=== PATIENT | female | born 1985 | race Caucasian/White ===

== ENCOUNTER 2020-06-07 | Outpatient (REF) | payer OTHER, SELFPAY ==
--- NOTE | 2020-06-07 10:13 | EMG_ITS ---
Right median and ulnar motor and sensory studies were performed. Right radial sensory study was performed and paraspinal muscles were tested. IMPRESSION: Mild right median neuropathy across carpal tunnel. MD JUAN Sage/SINAN / [id number]
== END 2020-06-07 00:01 ==
LOC: HO.NEURO
PROVIDERS: Visit Provider Internal Medicine
DX: M25.531 Pain in right wrist (principal)
CPT/HCPCS: 95860; 95885; 95909

== ENCOUNTER 2020-06-14 09:59 | Outpatient (REF) | payer OTHER, SELFPAY ==
--- NOTE | 2020-06-14 10:03 | US_ITS ---
EXAMINATION: US PELVIS COMPLETE CLINICAL INFORMATION: Lower abdominal pain/pelvic pain. COMPARISON: None TECHNIQUE: Transabdominal and transvaginal imaging of the pelvis is performed FINDINGS: The uterus is anteverted, anteflexed measuring 9.9 cm in length, 4.9 cm in AP and 6.8 cm in transverse dimension. There are at least 2 fibroids visualized in the anterior upper body of the uterus. They measure 1.7 x 1.8 x 1.7 cm and 1.2 x 1.3 x 1.0 cm. The uterus is homogeneous in echotexture. The endometrial thickness measures 1.20 cm. Small nabothian anechoic cysts in cervix. The right ovary measures 2.91 x 1.63 x 1.92 cm and volume 4.771 mL. It appears unremarkable. The left ovary measures 2.66 x 1.46 x 2.55 cm and volume 5.19 mL. It appears unremarkable. There is no free fluid in the cul-de-sac. US/US pelvic complete IMPRESSION: 1. Two small uterine fibroids. 2. Small nabothian cysts in the cervix. 3. The ovaries are unremarkable.
--- NOTE | 2020-06-14 10:04 | US_ITS ---
EXAMINATION: US PELVIS COMPLETE CLINICAL INFORMATION: Lower abdominal pain/pelvic pain. COMPARISON: None TECHNIQUE: Transabdominal and transvaginal imaging of the pelvis is performed FINDINGS: The uterus is anteverted, anteflexed measuring 9.9 cm in length, 4.9 cm in AP and 6.8 cm in transverse dimension. There are at least 2 fibroids visualized in the anterior upper body of the uterus. They measure 1.7 x 1.8 x 1.7 cm and 1.2 x 1.3 x 1.0 cm. The uterus is homogeneous in echotexture. The endometrial thickness measures 1.20 cm. Small nabothian anechoic cysts in cervix. The right ovary measures 2.91 x 1.63 x 1.92 cm and volume 4.771 mL. It appears unremarkable. The left ovary measures 2.66 x 1.46 x 2.55 cm and volume 5.19 mL. It appears unremarkable. There is no free fluid in the cul-de-sac. US/US transvaginal IMPRESSION: 1. Two small uterine fibroids. 2. Small nabothian cysts in the cervix. 3. The ovaries are unremarkable.
== END 2020-06-14 10:00 | disposition home or self-care (01) ==
LOC: HO.HMGCX 09:59
PROVIDERS: Visit Provider Advanced Practice Midwife
DX: R10.2 Pelvic and perineal pain (principal)
CPT/HCPCS: 76830; 76856

== ENCOUNTER 2020-07-11 10:13 | Outpatient (REF) | payer OTHER, SELFPAY | END 2020-07-11 10:14 | disposition home or self-care (01) | LOC: HO.LAB 10:13 | PROVIDERS: Visit Provider Internal Medicine | DX: Z20.828 Contact with and (suspected) exposure to other viral communicable diseases (principal) | CPT/HCPCS: 36415; C9803; U0003 ==

== ENCOUNTER 2020-07-23 10:30 | Outpatient (REF) | payer OTHER, SELFPAY ==
--- NOTE | 2020-07-23 | XR_ITS ---
EXAMINATION: XR CHEST CLINICAL INFORMATION: Cough. COMPARISON: None TECHNIQUE: 2 views of the chest were obtained. FINDINGS: No significant abnormality is noted involving the heart, lungs, mediastinum, bony thorax or soft tissues. XR/XR chest 2V IMPRESSION: Unremarkable chest examination.
== END 2020-07-23 10:31 | disposition home or self-care (01) ==
LOC: HO.XRAY 10:30
PROVIDERS: PCP Internal Medicine; Visit Provider Internal Medicine
DX: R05 Cough (principal)
CPT/HCPCS: 71046

== ENCOUNTER 2021-04-23 13:25 | Outpatient (REF) | payer OTHER, SELFPAY ==
--- NOTE | ~2021-04-23 | XR_ITS ---
EXAMINATION: XR CERVICAL SPINE CLINICAL INFORMATION: Pain COMPARISON: None TECHNIQUE: 6 views of the cervical spine, inclusive of bilateral oblique views, were obtained. FINDINGS: There is mild curvature of the lower cervical and upper thoracic spine to the left. Bone alignment is otherwise normal. No fracture or dislocation is seen. Disc spaces are normal. Right-sided neural foramen are patent. Evaluation of left-sided neural foramen is limited due to patient positioning. There is question of left-sided neuroforaminal narrowing at C7-T1 from bony osteophyte. Prevertebral soft tissues are normal. XR/XR cervical spine 5V IMPRESSION: Mild curvature of the lower cervical and upper thoracic spine to the left. Question mild left C7-T1 neuroforaminal narrowing from bony osteophyte.
== END 2021-04-23 13:26 | disposition home or self-care (01) ==
LOC: HO.HMGCX 13:25
PROVIDERS: PCP Internal Medicine; Visit Provider Internal Medicine
DX: M54.2 Cervicalgia (principal)
CPT/HCPCS: 72050

== ENCOUNTER 2021-07-09 07:00 | Outpatient (RCR) | payer OTHER, SELFPAY ==
--- NOTE | 2021-06-11 14:53 | MHC.PT.EP ---
[facility] [place] [facility] [place] [facility] [place] [facility] [address] [phone] F: [phone] F: [phone] F: [phone] F: [phone] Physical Therapy Plan of Care Date of Evaluation: Date of Surgery: n/a Diagnosis: neck pain, cervicalgia Assessment: Patient is a 35 year old R handed female who presents with s/s consistent with cervicalgia. 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 Her pain is often associated with work. Patient past medical history includes is fairly unremarkable. Current impairments include pain, posture, ROM, strength, activity tolerance and functional mobility. Functional limitations include decreased ability to walk, stand, lift, carry, vacuum, clean, transfer, negotiate stairs, and perform weight bearing activities.. Patient is motivated with good rehab potential. Skilled PT will address impairments and functional limitations in order to achieve goals. Frequency and Duration: The patient will be seen 2x/week for 5 weeks Short Term Goals: I with HEP - 2 weeks Improved postural awareness - 3 weeks Symmetrical AROM rotation - 3 weeks Fdc Goals: Max pain with work day - 5 weeks Able to lift/carry 20# pain free - 5 weeks NPDI 12% or better - 5 weeks Treatment Plan: Modalities to reduce pain, spasms and effusion. Manual therapy to restore motion and function. Therapeutic exercise to improve strength and flexibility. Neuromuscular re-education for posture and balance. Therapeutic activities to return to functional activities of daily living. Electronically signed by: Mario Engle PT Please sign and return to therapist. Thank you for your referral.
== END 2021-10-03 09:44 | disposition home or self-care (01) ==
LOC: HO.PTCHIC 07:00
PROVIDERS: PCP Internal Medicine; Visit Provider Internal Medicine
DX: R41.3 Other amnesia (principal); M54.2 Cervicalgia
CPT/HCPCS: 97110; 97140; 97161

== ENCOUNTER 2022-06-03 13:02 | Outpatient (REF) | payer OTHER, SELFPAY ==
--- NOTE | ~2022-06-03 | US_ITS ---
EXAMINATION: US PELVIS CLINICAL INFORMATION: Extensive and frequent menses, leiomyoma, last menstrual period 05/20/2022. COMPARISON: 06/14/2020 TECHNIQUE: Ultrasound of the pelvis is performed using both transabdominal and transvaginal transducers along with Doppler. Transvaginal imaging is performed due to inadequate visualization transabdominally. FINDINGS: The uterus is heterogeneous and measures 9.3 x 4.5 x 5.3 cm, volume 116 mL. There is a 1.9 x 1.5 x 2.5 cm fibroid, previously 1.7 x 1.8 x 1.7 cm. A 0.5 x 0.5 x 0.6 cm fibroid was not previously identified. Nabothian cysts in the cervix. No significant free fluid. Left ovary is unremarkable and measures 2.2 x 1.8 x 1.7 cm, volume 3.5 mL. Right ovary measures 3.0 x 2.1 x 2.8 cm, volume 8.9 mL. Right ovarian simple cyst measures 1.3 x 1.0 x 1.3 cm. US/US pelvic and transvaginal IMPRESSION: 1. Fibroid uterus. 2. Endometrial thickness is 0.6 cm. Endometrium appears echogenic. 3. Right ovarian 1.3 cm simple cyst is likely physiologic. 4. Unremarkable left ovary.
== END 2022-06-03 13:03 | disposition home or self-care (01) ==
LOC: HO.HMGCX 13:02
PROVIDERS: PCP Internal Medicine; Visit Provider Advanced Practice Midwife
DX: D25.9 Leiomyoma of uterus, unspecified (principal); N92.0 Excessive and frequent menstruation with regular cycle; N94.6 Dysmenorrhea, unspecified
CPT/HCPCS: 76830; 76856

== ENCOUNTER → 2022-11-25 09:11 | Outpatient (BNVA) | payer OTHER, SELFPAY | PROVIDERS: PCP Internal Medicine; Visit Provider Advanced Practice Midwife | DX: D25.9 Leiomyoma of uterus, unspecified (principal) | CPT/HCPCS: 99202 ==

== ENCOUNTER 2022-11-27 09:29 | Outpatient (REF) | payer OTHER, SELFPAY ==
--- NOTE | ~2022-11-27 | XR_ITS ---
Examination: Left foot and left ankle. CLINICAL INDICATION: Foot pain. COMPARISON: None. TECHNIQUE: 3 views left foot and 2 views left ankle. FINDINGS: Left foot: There is no visible fracture, dislocation or subluxation. No bony erosive changes. The soft tissues are normal. Left ankle: There is a small calcaneal heel enthesophyte. The ankle mortise and subtalar joints are normal. No visible acute fracture, dislocation or subluxation seen. XR/XR foot LT min 3V IMPRESSION: 1. Unremarkable left foot exam. 2. Small calcaneal heel enthesophyte. No visible acute fracture, dislocation or subluxation seen.
--- NOTE | ~2022-11-27 | XR_ITS ---
Examination: Left foot and left ankle. CLINICAL INDICATION: Foot pain. COMPARISON: None. TECHNIQUE: 3 views left foot and 2 views left ankle. FINDINGS: Left foot: There is no visible fracture, dislocation or subluxation. No bony erosive changes. The soft tissues are normal. Left ankle: There is a small calcaneal heel enthesophyte. The ankle mortise and subtalar joints are normal. No visible acute fracture, dislocation or subluxation seen. XR/XR ankle LT min 3V IMPRESSION: 1. Unremarkable left foot exam. 2. Small calcaneal heel enthesophyte. No visible acute fracture, dislocation or subluxation seen.
== END 2022-11-27 09:30 | disposition home or self-care (01) ==
LOC: HO.XRAY 09:29
PROVIDERS: PCP Internal Medicine; Visit Provider General Practice
DX: M25.572 Pain in left ankle and joints of left foot (principal)
CPT/HCPCS: 73610; 73630

== ENCOUNTER 2023-06-30 14:35 | Outpatient (REF) | payer OTHER, SELFPAY ==
[2023-06-30 18:25] LABS: Influenza A PCR NEGATIVE (Negative); Influenza B PCR NEGATIVE (Negative); Resp Syncy Virus RNA Qual PCR POSITIVE (Negative); SARS COV2 PCR INHOUSE NEGATIVE (Negative)
== END 2023-06-30 14:36 | disposition home or self-care (01) ==
LOC: HO.CHCLNP 14:35
PROVIDERS: Visit Provider Internal Medicine
DX: Z11.52 Encounter for screening for COVID-19 (principal); J06.9 Acute upper respiratory infection, unspecified
CPT/HCPCS: 0241U; 87070

== ENCOUNTER 2023-07-09 11:30 | Outpatient (REF) | payer OTHER, SELFPAY | END 2023-07-09 11:31 | disposition home or self-care (01) | LOC: HO.US 11:30 | PROVIDERS: PCP Internal Medicine; Visit Provider Advanced Practice Midwife | DX: D21.9 Benign neoplasm of connective and other soft tissue, unspecified (principal) | CPT/HCPCS: 76830; 76856 ==

== ENCOUNTER 2023-07-22 19:39 | Outpatient (REF) | payer OTHER, SELFPAY | END 2023-07-22 19:40 | disposition home or self-care (01) | LOC: HO.HHCLNP 19:39 | PROVIDERS: Visit Provider Emergency Medicine | DX: J10.1 Influenza due to other identified influenza virus with other respiratory manifestations (principal) | CPT/HCPCS: 87070 ==

== ENCOUNTER 2023-12-24 15:48 | Outpatient (REF) | payer SELFPAY ==
--- NOTE | ~2023-12-24 | XR_ITS ---
EXAMINATION: XR CERVICAL SPINE CLINICAL INFORMATION: Radiculopathy. Neck pain. COMPARISON: None available. TECHNIQUE: 5 views of the cervical spine were obtained. FINDINGS: Cervical vertebrae have normal height and alignment. No fracture or bone destruction. No prevertebral soft tissue swelling. Mild cervical disc height narrowing C5-C6 and C6-C7 discs levels. The facet joints are normal. Neural foramina are open bilaterally. XR/XR cervical spine 4V IMPRESSION: 1. No acute abnormality. 2. Mild cervical disc height narrowing at C5-C6 and C6-C7.
--- NOTE | ~2023-12-24 | XR_ITS ---
EXAMINATION: XR THORACOLUMBAR SPINE CLINICAL INFORMATION: Cervical radiculopathy; radiculopathy of cervicothoracic region; neck/midback pain. COMPARISON: None available. TECHNIQUE: 2 views thoracic spine. FINDINGS: There is a minimal scoliosis convex to the left centered at T3-T4. No intrinsic bony abnormality. The disc heights are well maintained. The endplates and posterior elements are normal. No fracture or subluxation. The surrounding prevertebral soft tissues are unremarkable. XR/XR thoracic spine 2V IMPRESSION: Minimal scoliosis convex to the left.
== END 2023-12-24 15:49 | disposition home or self-care (01) ==
LOC: HO.HHCX 15:48
PROVIDERS: Visit Provider Internal Medicine
DX: M54.12 Radiculopathy, cervical region (principal); M54.13 Radiculopathy, cervicothoracic region
CPT/HCPCS: 72050; 72070

== ENCOUNTER 2024-04-30 08:52 | Outpatient (REF) | payer SELFPAY ==
[2024-04-30 10:39] LABS: HCG Quantitative 600 mIU/mL
== END 2024-04-30 08:53 | disposition home or self-care (01) ==
LOC: HO.LAB 08:52
PROVIDERS: PCP Internal Medicine; Visit Provider Internal Medicine
DX: Z32.00 Encounter for pregnancy test, result unknown (principal)
CPT/HCPCS: 36415; 84702

== ENCOUNTER 2024-05-19 13:29 | Emergency (ER) | payer MEDICAID, SELFPAY ==
--- NOTE | ~2024-05-19 | US_ITS ---
EXAMINATION: US OBSTETRICAL ULTRASOUND CLINICAL INFORMATION: Vaginal bleeding and cramping. COMPARISON: Pelvic ultrasound dated 06/03/2022. LMP: 04/01/2024. Gestational age by maternal dates is 6 weeks 6 days. Estimated date of delivery by maternal dates is . TECHNIQUE: Transabdominal and transvaginal imaging was obtained. FINDINGS: There is an intrauterine gestational sac and pole. The pole corresponds to a gestational age of 6 weeks 0 days. Unremarkable yolk sac measuring 0.5 cm. Additional cystic structure which has the appearance of a second yolk sac is partially visualized. No heart rate detected within the pole. Adjacent to the gestational sac there is an irregular area of hypoechoic echogenicity, consistent with subchorionic hemorrhage. Redemonstration of a uterine fibroid measuring up to 2.2 cm. MATERNAL ADNEXA: The right maternal ovary measures 3 x 1.7 x 2.3 cm. The left maternal ovary measures 2.3 x 1.2 x 1.6 cm. Normal Doppler detectable vascular flow within the right and left ovary. There is no significant maternal adnexal mass. No maternal pelvic ascites. US/US OB pelvic and transvaginal IMPRESSION: 1. Intrauterine gestational sac with a pole. No heart rate identified. There appear to be 2 separate possible yolk sacs. 2. Findings consistent with subchorionic hemorrhage. 3. Redemonstration of a uterine fibroid. 4. Unremarkable right and left ovary. Electronically signed by: Jason Sharma MD 05/19/2024 05:51 PM [facility] [place]
[2024-05-19 14:23] VITALS: BP 127/72; PULSE 75; RESP 20; TEMP 37.3; O2SAT 100; BMI 35.2
--- NOTE | 2024-05-19 14:24 | ED.FEMALEGU ---
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 Has mild cramping. No recent trauma. Does not have OBGYN PCP ordered quant 04/30 it was 600. MD elicited complaint: vaginal bleeding Onset (ago): day(s) (today) Location of symptoms: suprapubic Severity: mild Quality of pain: cramping Consistency: intermittent Vaginal discharge: none Vaginal bleeding: bright red and # pads per day (2) Exacerbating factors: none Relieving factors: none Associated symptoms: denies other symptoms Treatment prior to arrival: none Related Data Previous Rx's ?Medication ?Instructions ?Recorded nitrofurantoin 100 mg PO BID 7 days #14 caps 05/20/24 monohydrate/macrocrystals 100 mg capsule (Macrobid) Allergies Allergy/AdvReac Type Severity Reaction Status Date / Time No Known Allergies Allergy Verified 05/19/24 14:26 Review of Systems Review of Systems: Constitutional : No Fever, No Chills ENT/Mouth : No sore throat, No Rhinorrhea Eyes: No Eye Pain, No Redness Cardiovascular : No Chest Pain, No SOB Respiratory : No Cough, No Sputum, No Wheezing Gastrointestinal : no Nausea, No Vomiting, No Diarrhea, positive abdominal pain, Genitourinary : positive irregular bleeding, No Dysuria, No Urinary Frequency, positive pelvic pain Musculoskeletal : No Myalgias Skin : No rash Neuro : No Weakness, No Headache Psych : No Anxiety/Panic, No Depression Heme/Lymph: No bruising, No Lymphadenopathy Endocrine : No Polyuria, No Polydipsia All other systems reviewed and are negative PMFSH Past Medical History Attestation statement: The following information was validated with the patient. Source: old records reviewed Medical History Varicose vein of leg Surgical History Hx of section Social History Social History Alcohol intake: current Alcohol intake frequency: holidays/special occasions only Physical Exam Vital Signs: Vital Signs: Last Vital Signs Temp 97.9 F 05/19/24 22:07 Pulse 65 05/19/24 22:07 Resp 18 05/19/24 22:07 BP 103/68 05/19/24 22:07 Pulse Ox 98 05/19/24 22:07 O2 Del Method Room Air 05/19/24 22:07 BMI result Body Mass Index 35.2 Appearance: Alert. Oriented X3. No acute distress. Eyes: Pupils equal, round and reactive to light. ENT: Pharynx normal. Neck: Normal inspection. Neck supple. CVS: Normal heart rate and rhythm. Pulses normal. Respiratory: No respiratory distress. Breath sounds normal. Abdomen: Soft and nontender. : 1 scopette of blood, os closed Skin: Skin warm and dry. Normal skin color. Normal skin turgor. Extremities: No lower extremity edema. No calf ttp Neuro: Oriented X 3. No motor deficit. No sensory deficit. Course Course Course Narrative: This is a Rapid Medical Exam performed in triage by Marce Benedict PA-C. Full HPI, ROS and PE to be performed by primary ED provider. 38yo F @ about 6wks gestation presenting to the ED c/o vaginal bleeding /spotting x this morning w/o clots. +abdominal cramping. Has not obtained any OB care yet. LMP 04/01/24 PE: nontoxic appearing, ambulating w/steady gait Plan: labs, UA, US Reevaluation(s) Reevaluation #1: left message about UTI macrobid in pharmacy 1232am Medications Administered Discontinued Medications Generic Name Dose Route Start Last Admin Trade Name Freq PRN Reason Stop Dose Admin Acetaminophen 650 mg 05/19/24 21:38 05/19/24 21:59 Acetaminophen 325 Mg Tablet PO 05/19/24 21:39 650 mg ONCE ONE Administration Medical Decision Making Medical Decision Making [facility] Narrative: 38 yo female with PMH of fibroids - here with vaginal bleeding at this time will obtain quant, RH status, H/H and US - concern for threatened ab. Suspect she will need close outpatient follow up Differential Diagnosis Differential Diagnoses: The differential diagnosis associated with the presentation includes threatened ab, subchorionic hemorrhage Admission/Observation Consideration of admission/observation: Escalation of care including admission/observation considered H/H stable O pos send home with precautions Consult Healthcare Provider Management of the patient was discussed with: Occupational Therapist Assistants (Dr. Rose aware follow up in 48 hours repeat quant) Lab Data [facility] Lab Attestation statement: I reviewed the patient's lab results. 05/19/24 15:03 05/19/24 15:03 Labs: Lab Results 05/19/24 05/19/24 05/19/24 Range/Units 15:02 15:03 15:04 WBC 7.2 (4.8-10.8) X10*3/uL RBC 4.56 (4.20-5.50) X10*6/uL Hgb 13.9 (12.0-16.0) g/dl Hct 41.5 (37.0-47.0) % MCV 91.0 (80.0-98.0) fL MCH 30.5 (27.0-33.0) pg MCHC 33.5 (31.0-35.0) g/dl RDW 12.8 (11.0-16.0) % Plt Count 235 (160-400) X10*3/uL MPV 9.9 (9.4-12.3) fL Immature Gran % (Auto) 0.3 (0.0-0.4) % Neut % (Auto) 59.6 (45-73) % Lymph % (Auto) 28.6 (20-40) % [place] % (Auto) 9.2 (2-11) % Eos % (Auto) 1.9 (0-4) % Baso % (Auto) 0.4 (0-2) % Lymph # (Auto) 2.1 (1.2-4.9) X10*3/uL [place] # (Auto) 0.7 (0.1-1.2) X10*3/uL Eos # (Auto) 0.1 (0.0-0.4) X10*3/uL Baso # (Auto) 0.0 (0.0-0.2) X10*3/uL Abs Immat Gran (auto) 0.02 (0.00-0.03) X10*3/uL Absolute Neuts (auto) 4.3 (2.0-8.3) x10*3/uL Absolute Nucleated RBC 0.000 (0.0-0.012) X10*3/uL Nucleated RBC % (auto) 0.0 (0.0-0.2) /100WBC Sodium 135 (135-145) mmol/L Potassium 4.0 (3.3-5.1) mmol/L Chloride 107 (96-108) mmol/L Carbon Dioxide 24 (22-29) mmol/L Anion Gap 8 L (12-20) BUN 14 (9-16) mg/dL Creatinine 0.74 (0.5-1.4) mg/dL Estim Creat Clear Calc 111.7 Estimated GFR > 60 Random Glucose 102 (60-115) mg/dL Calcium 8.7 (8.4-10.2) mg/dL Magnesium 2.1 (1.6-2.6) mg/dL Total Bilirubin 0.2 (0.0-1.0) mg/dL Direct Bilirubin < 0.2 (0.0-0.5) mg/dL AST 32 H (5-31) U/L ALT 33 H (0-31) U/L Alkaline Phosphatase 88 (39-117) U/L Total Protein 7.1 (6.5-8.0) g/dL Albumin 3.9 (3.5-5.0) g/dL Lipase 23 (8-78) U/L Beta HCG, Quant 1843 mIU/mL Urine Color pink Urine Appearance Hazy Urine pH 5.0 (5.0-9.0) Ur Specific [place] 1.015 (1.005-1.025) Urine Protein 100 (2+) H (Neg-Trace) mg/dL Urine Glucose (UA) Negative (Negative) mg/dL Urine Ketones Trace (Negative) mg/dL Urine Blood Large (3+) H (Negative) Urine Nitrite Positive H (Negative) Ur Leukocyte Esterase Trace H (Negative) Urine RBC >20 H (0-2) /HPF Urine WBC 11-20 H (0-5) /HPF Ur Squamous Epith Cells 11-20 (0-2) /HPF Urine Bacteria 2+ (None Seen) Hyaline Casts 0-2 (0-2) /LPF Blood Type O Positive Independent Interpretation I performed an independent interpretation of an: Ultrasound (not consistent with dates concern for threatened ab) Radiology Impression Discussion of test interpretation with radiology: I have reviewed the radiologist's reading. Independent Historian Clinical information obtained from an independent historian. History obtained from or confirmed by: Spouse External Record Review External record reviewed: Prior outpatient labs Discharge Plan Discharge Clinical Impression: Threatened , Acute UTI Patient Disposition: Home, Self-Care Instructions: Threatened Miscarriage (ED) Additional Instructions: return for severe pain, fainting, passing clots larger than a golf ball, dizziness return thursday for repeat blood work rest and stay hydrated take tylenol for pain Prescriptions: New nitrofurantoin monohyd/m-cryst [Macrobid] 100 mg capsule 100 mg PO BID 7 Days Qty: 14 0RF Rx Instructions: must administer with a meal/food Stand Alone Forms: Work/School Release Interventions: ED Discharge Assessment Last Done: 05/19/24 22:07 Discharge Date/Time: 05/19/24 22:07 Print Language: Malagasy
[2024-05-19 15:12] LABS: MANUAL DIFF FLAG NO
[2024-05-19 15:15] LABS: Basophils Percent Auto 0.4 % (0-2); Eosinophils Absolute Auto 0.1 X10*3/uL (0.0-0.4); Eosinophils Percent Auto 1.9 % (0-4); Hematocrit 41.5 % (37.0-47.0); Hemoglobin 13.9 g/dl (12.0-16.0); Imm Gran Abs Auto 0.02 X10*3/uL (0.00-0.03); Imm Gran Pct Auto 0.3 % (0.0-0.4); Lymphocytes Absolute Auto 2.1 X10*3/uL (1.2-4.9); Lymphocytes Percent Auto 28.6 % (20-40); Mean Corpuscular HGB Conc 33.5 g/dl (31.0-35.0); Mean Corpuscular Hemoglobin 30.5 pg (27.0-33.0); Mean Platelet Volume 9.9 fL (9.4-12.3); Monocytes Absolute Auto 0.7 X10*3/uL (0.1-1.2); Monocytes Percent Auto 9.2 % (2-11); Neutrophils Absolute Auto 4.3 x10*3/uL (2.0-8.3); Neutrophils Percent Auto 59.6 % (45-73); Platelet Count 235 X10*3/uL (160-400); Red Blood Count 4.56 X10*6/uL (4.20-5.50); Red Cell Distribution Width 12.8 % (11.0-16.0); White Blood Count 7.2 X10*3/uL (4.8-10.8)
[2024-05-19 15:15] LABS: Appearance Urine Hazy; Glucose Urine UA Negative (Negative); Leukocyte Esterase Urine Trace (Negative); Nitrite Urine Positive (Negative); Specific Gravity - Urine 1.015 (1.005-1.025); UMIC TRIGGER UACC YES; Urine Blood Large (3+) (Negative); Urine Ketones Trace mg/dL (Negative); Urine Protein 100 (2+) mg/dL (Neg-Trace)
[2024-05-19 15:23] LABS: Bacteria Urine 2+ (None Seen); Hyaline Casts Urine 0-2 /LPF (0-2); RBC Urine >20 /HPF (0-2); UACC Culture Trigger YES
[2024-05-19 15:37] LABS: Alanine Aminotransferase 33 U/L (0-31); Albumin Level 3.9 g/dL (3.5-5.0); Alkaline Phosphatase 88 U/L (39-117); Anion Gap 8 (12-20); Aspartate Amino Transferase 32 U/L (5-31); Bilirubin Direct < 0.2 mg/dL (0.0-0.5); Bilirubin Total 0.2 mg/dL (0.0-1.0); Blood Urea Nitrogen 14 mg/dL (9-16); Calcium 8.7 mg/dL (8.4-10.2); Carbon Dioxide 24 mmol/L (22-29); Chloride 107 mmol/L (96-108); Creatinine Clr Calc Pharmacy 111.7; Estimated Glomerular Filt Rate > 60; Glucose Random 102 mg/dL (60-115); HCG Quantitative 1843 mIU/mL; Lipase 23 U/L (8-78); Magnesium 2.1 mg/dL (1.6-2.6); Sodium 135 mmol/L (135-145); Total Protein 7.1 g/dL (6.5-8.0)
[2024-05-19 19:58] VITALS: BP 110/63; PULSE 62; RESP 16; TEMP 36.5; O2SAT 100
--- NOTE | 2024-05-19 21:47 | PM.GYNCN ---
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 Has mild cramping. quant hCG on 04/30 was 600. Today in the emergency room hCG was 1843 Blood type O positive cc:: CC: OB [facility] Past Medical History Medical History Varicose vein of leg Surgical History Surgical History Hx of section Social History Social History Alcohol intake: current Alcohol intake frequency: holidays/special occasions only Smoked in Last 30 Days: No Use of substances other than those prescribed or required for medical reasons: No Advance Directives: No Advance Directives Information Provided: Yes Patient : Yes Meds Allergies Allergy/AdvReac Type Severity Reaction Status Date / Time No Known Allergies Allergy Verified 05/19/24 14:26 Home Medications ?Medication ?Instructions ?Recorded ?Confirmed ?Last Taken ?Type No Known Home Meds 11/25/22 11/25/22 Unknown History [employer] OPER[employer] Physical Exam Vitals Vital signs: Temp Pulse Resp BP Pulse Ox O2 Del Method 97.7 F 62 16 110/63 100 Room Air 05/19/24 19:58 05/19/24 19:58 05/19/24 19:58 05/19/24 19:58 05/19/24 19:58 05/19/24 19:58 BMI result Body Mass Index 35.2 Additional Comments: Reported by Dr. Reddy as the following: Abdomen: Soft and nontender. : 1 scopette of blood, os closed [employer] OPERATOR - Results Labs 05/19/24 15:03 05/19/24 15:03 Labs: Short CBC 05/19/24 Range/Units 15:03 WBC 7.2 (4.8-10.8) X10*3/uL Hgb 13.9 (12.0-16.0) g/dl Hct 41.5 (37.0-47.0) % Plt Count 235 (160-400) X10*3/uL BMP 05/19/24 15:03 Sodium 135 Potassium 4.0 Chloride 107 Carbon Dioxide 24 BUN 14 Creatinine 0.74 Calcium 8.7 Liver Function 05/19/24 Range/Units 15:03 Total Bilirubin 0.2 (0.0-1.0) mg/dL Direct Bilirubin < 0.2 (0.0-0.5) mg/dL AST 32 H (5-31) U/L ALT 33 H (0-31) U/L Alkaline Phosphatase 88 (39-117) U/L Albumin 3.9 (3.5-5.0) g/dL Urine 05/19/24 Range/Units 15:04 Urine Color pink Urine Appearance Hazy Urine pH 5.0 (5.0-9.0) Ur Specific [place] 1.015 (1.005-1.025) Urine Protein 100 (2+) H (Neg-Trace) mg/dL Urine Glucose (UA) Negative (Negative) mg/dL Imaging US - abdomen: Radiologist's impression: ITS Impressions Pelvic/Transvag US 05/19/24 16:17 IMPRESSION: 1. Intrauterine gestational sac with a pole. No heart rate identified. There appear to be 2 separate possible yolk sacs. 2. Findings consistent with subchorionic hemorrhage. 3. Redemonstration of a uterine fibroid. 4. Unremarkable right and left ovary. Electronically signed by: Jason Sharma MD 05/19/2024 05:51 PM [facility] [place] Assessment and Plan (1) Threatened : Status: Acute Recommended the following to Dr. Reddy: SAB/ectopic warnings to be given the patient she is to come back to emergency room in case of pelvic pain and/or cramping or vaginal, 2 follow-up in the emergency room 48 hours will repeat hCG and ultrasound. vitamin tablet p.o. q.d. I spent a total of 20 minutes reviewing the chart, communicating to the emergency room provider and documenting in the medical record
[2024-05-19 21:57] VITALS: BP 103/68; PULSE 65; RESP 18; TEMP 36.6; O2SAT 98
[2024-05-19] MEDS: Acetaminophen 325 MG TABLET 650 MG PO (21:59)
[2024-05-19 22:07] VITALS: BP 103/68; PULSE 65; RESP 18; TEMP 36.6; O2SAT 98
== END 2024-05-19 22:07 | disposition home or self-care (01) ==
PROVIDERS: Physician Assistant; Emergency Provider Emergency Medicine; PCP Internal Medicine
DX: O20.0 Threatened abortion (principal); N93.8 Other specified abnormal uterine and vaginal bleeding; R25.2 Cramp and spasm; R10.2 Pelvic and perineal pain; Z79.899 Other long term (current) drug therapy
CPT/HCPCS: 36415; 76801; 76817; 80048; 80076; 81001; 83690; 83735; 84702; 85025; 86900; 86901; 87086; 99284

== ENCOUNTER → 2024-05-19 19:47 | Outpatient (BNV) | payer MEDICAID, SELFPAY | PROVIDERS: Emergency Provider Emergency Medicine; PCP Internal Medicine; Visit Provider Obstetrics & Gynecology | DX: O20.0 Threatened abortion (principal) | CPT/HCPCS: 99283 ==

== ENCOUNTER 2024-05-21 09:19 | Emergency (ER) | payer MEDICAID, SELFPAY ==
--- NOTE | ~2024-05-21 | US_ITS ---
EXAMINATION: US OBSTETRICAL ULTRASOUND CLINICAL INFORMATION: Bleeding. Lowering hCG. COMPARISON: Pelvic ultrasound dated 05/19/2024. LMP: 04/01/2024. Gestational age by maternal dates is 7 weeks 1 day. Estimated date of delivery by maternal dates is 01/06/2025. TECHNIQUE: Transabdominal images were obtained. FINDINGS: The previously seen intrauterine gestational sac is no longer identified. Heterogeneous and thickened endometrium measuring up to 2.5 cm. No associated Doppler detectable vascular flow. No clear retained products of conception. Redemonstration of a fundal fibroid measuring up to 2.9 cm. Sonographically unremarkable right ovary measuring 3.0 x 1.8 x 2.2 cm with normal Doppler detectable vascular flow. Sonographically unremarkable left ovary measuring 2.0 x 1.2 x 1.7 cm with Doppler detectable vascular flow. No pelvic free fluid. US/US OB <= 14 weeks fetus IMPRESSION: 1. Previously seen intrauterine gestational sac no longer identified. Mildly heterogeneous and thickened endometrium without Doppler detectable vascular flow. No definite retained products of conception. 2. Sonographically unremarkable right and left ovary. Electronically signed by: Jason Sharma MD 05/21/2024 02:32 PM [facility]
[2024-05-21 09:21] VITALS: BP 123/66; PULSE 69; RESP 16; TEMP 36.8; O2SAT 100; BMI 34.7
[2024-05-21 09:51] LABS: MANUAL DIFF FLAG NO
[2024-05-21 10:00] LABS: Basophils Percent Auto 0.5 % (0-2); Eosinophils Absolute Auto 0.2 X10*3/uL (0.0-0.4); Eosinophils Percent Auto 2.8 % (0-4); Hematocrit 38.7 % (37.0-47.0); Hemoglobin 12.9 g/dl (12.0-16.0); Imm Gran Abs Auto 0.02 X10*3/uL (0.00-0.03); Imm Gran Pct Auto 0.3 % (0.0-0.4); Lymphocytes Absolute Auto 1.3 X10*3/uL (1.2-4.9); Lymphocytes Percent Auto 21.9 % (20-40); Mean Corpuscular HGB Conc 33.3 g/dl (31.0-35.0); Mean Corpuscular Hemoglobin 30.1 pg (27.0-33.0); Mean Corpuscular Volume 90.4 fL (80.0-98.0); Mean Platelet Volume 9.8 fL (9.4-12.3); Monocytes Absolute Auto 0.6 X10*3/uL (0.1-1.2); Monocytes Percent Auto 10.4 % (2-11); Neutrophils Absolute Auto 3.9 x10*3/uL (2.0-8.3); Neutrophils Percent Auto 64.1 % (45-73); Platelet Count 215 X10*3/uL (160-400); Red Blood Count 4.28 X10*6/uL (4.20-5.50); Red Cell Distribution Width 12.8 % (11.0-16.0); White Blood Count 6.1 X10*3/uL (4.8-10.8)
[2024-05-21 10:16] LABS: Alanine Aminotransferase 37 U/L (0-31); Albumin Level 3.9 g/dL (3.5-5.0); Alkaline Phosphatase 98 U/L (39-117); Anion Gap 12 (12-20); Aspartate Amino Transferase 27 U/L (5-31); Bilirubin Total 0.3 mg/dL (0.0-1.0); Blood Urea Nitrogen 13 mg/dL (9-16); Calcium 8.9 mg/dL (8.4-10.2); Carbon Dioxide 23 mmol/L (22-29); Chloride 109 mmol/L (96-108); Creatinine Clr Calc Pharmacy 119.8; Estimated Glomerular Filt Rate > 60; Glucose Random 116 mg/dL (60-115); HCG Quantitative 883 mIU/mL; Sodium 140 mmol/L (135-145); Total Protein 6.8 g/dL (6.5-8.0)
--- NOTE | 2024-05-21 14:16 | ED_ITS ---
HPI - General Chief complaint: Vaginal Bleeding Stated complaint: gen med Time Seen by Provider: 05/21/24 14:03 Source: patient, RN notes reviewed and old records reviewed Mode of arrival: ambulatory Limitations: no limitations History of Present Illness ED Provider: REINALDO BRAY PA-C HPI Narrative: 38 year old female pmhx uterine fibroids presents to the ED today requesting repeat hcg and pelvic ultrasound. LMP 04/01/24. Patient was evaluated in our ED 2 days ago for vaginal bleeding and abdominal cramping. Work up was concerning for . She was advised to return in 48 hours for repeat hcg levels and ultrasound. Patient reports continued vaginal bleeding. She states the bleeding seem like her period. She has been going through around 2-3 pads daily. Denies clots. Associated mild abdominal cramping. Otherwise feels well. Denies fever, chills, N/V. Patient did recieve a call after being discharged from ED 2 days ago. She was told her urine was positive for infection. She has been taking the prescribed macrobid as directed. No concerns. Related Data Previous Rx's ?Medication ?Instructions ?Recorded nitrofurantoin 100 mg PO BID 7 days #14 caps 05/20/24 monohydrate/macrocrystals 100 mg capsule (Macrobid) Allergies Allergy/AdvReac Type Severity Reaction Status Date / Time No Known Allergies Allergy Verified 05/21/24 09:23 Review of Systems 2 Review of Systems: Constitutional: No fever, chills, fatigue, night sweats, weight changes ENT/Mouth: No ear pain, hearing loss, nasal congestion, sinus pain, rhinorrhea, sore throat Eyes: No eye pain, swelling, redness, vision changes, discharge Cardio: No chest pain, palpitations, MEDINA, orthopnea, peripheral edema Pulm: No SOB, cough, sputum, wheezing, dyspnea, hemoptysis GI: No nausea, vomiting, hematemesis, diarrhea, constipation, hematochezia, melena, +abdominal cramping : No dysuria, frequency, urgency, hesitancy, hematuria, flank pain, urinary flow changes, urinary incontinence or retention, +vaginal bleeding MSK: No back pain, neck pain, joint pain, myalgias Skin: No lesions, rashes Neuro: No weakness, numbness, paresthesias, LOC, dizziness, headache Psych: No anxiety/panic, depression, SI/HI, AH/VH All other systems reviewed and are negative. [facility] Past Medical History Attestation statement: The following information was validated with the patient. Source: old records reviewed and nursing notes reviewed Medical History Varicose vein of leg Surgical History Hx of section Social History Social History Alcohol intake: current Alcohol intake frequency: holidays/special occasions only Advance Directives: No Advance Directives Information Provided: Yes Physical Exam 2 Vital Signs: Vital Signs: Last Vital Signs Temp 98.7 F 05/21/24 14:52 Pulse 85 05/21/24 14:52 Resp 20 05/21/24 14:52 BP 125/86 05/21/24 14:52 Pulse Ox 100 05/21/24 14:52 O2 Del Method Room Air 05/21/24 14:52 BMI result Body Mass Index 34.7 vital signs stable General: Well appearing, in no acute distress. Skin: Warm, dry, intact. No rashes or lesions. Head: Normocephalic, atraumatic. EENT: Hearing is intact b/l. Conjunctiva clear. PERRLA. EOM intact. Moist mucous membranes.? Cardiac: Chest wall symmetric. RRR. Lungs: Normal respiratory effort without accessory muscle use. CTA bilaterally. Abdomen: Soft, non-tender, non-distended. No rebound tenderness or guarding. Positive BS x4. : exam deferred Ext: Upper and lower extremities atraumatic, without tenderness, deformity, swelling or erythema. Full ROM throughout. Neuro: AOx3. Normal speech. Ambulating with steady gait. Course Course Course Narrative: 1446 -- CBC without leukocytosis or left shift. No anemia. H&H stable. Chemistry without acute electrolyte abnormality requiring intervention. No SUSAN. Random glucose 116. Beta HCG has decreased from 1843 on 05/19/24 to 883 today 05/21/24. Pelvic ultrasound shows previously seen intrauterine gestational sac no longer identified, mildly heterogeneous and thickened endometrium without Doppler detectable vascular flow. There are no retained products of conception. Unremarkable right and left ovary. my attending Dr. Reddy has also reviewed ultrasound findings. concern for completed . advised patient to return to the ED in 2 days for repeat hcg. she verbalizes understanding. discussed strict return precautions. Patient has remained stable throughout ED visit today. Discussed worrisome signs and symptoms and when to return to the ED. All questions answered at this time. Patient is agreeable with disposition and stable for discharge. Medical Decision Making Medical Decision Making [facility] Narrative: 38 year old female pmhx uterine fibroids presents to the ED today requesting repeat hcg and pelvic ultrasound. Vital signs stable. Afebrile. She is nontoxic appearing in no acute distress. abdomen is soft, ND/NT, no rebound or guarding. pelvic exam deferred. pelvic exam performed on 05/19 showing closed os. Differential diagnosis includes threatened , completed , subchorionic hemorrhage, urinary tract infection Plan for repeat blood work, ultrasound, re-evaluation Differential Diagnosis Differential Diagnoses: The differential diagnosis associated with the presentation includes as above. Admission/Observation Not indicated. Lab Data [facility] Lab Attestation statement: I reviewed the patient's lab results. as above. 05/21/24 09:47 05/21/24 09:47 Labs: Lab Results 05/21/24 Range/Units 09:47 WBC 6.1 (4.8-10.8) X10*3/uL RBC 4.28 (4.20-5.50) X10*6/uL Hgb 12.9 (12.0-16.0) g/dl Hct 38.7 (37.0-47.0) % MCV 90.4 (80.0-98.0) fL MCH 30.1 (27.0-33.0) pg MCHC 33.3 (31.0-35.0) g/dl RDW 12.8 (11.0-16.0) % Plt Count 215 (160-400) X10*3/uL MPV 9.8 (9.4-12.3) fL Immature Gran % (Auto) 0.3 (0.0-0.4) % Neut % (Auto) 64.1 (45-73) % Lymph % (Auto) 21.9 (20-40) % [place] % (Auto) 10.4 (2-11) % Eos % (Auto) 2.8 (0-4) % Baso % (Auto) 0.5 (0-2) % Lymph # (Auto) 1.3 (1.2-4.9) X10*3/uL [place] # (Auto) 0.6 (0.1-1.2) X10*3/uL Eos # (Auto) 0.2 (0.0-0.4) X10*3/uL Baso # (Auto) 0.0 (0.0-0.2) X10*3/uL Abs Immat Gran (auto) 0.02 (0.00-0.03) X10*3/uL Absolute Neuts (auto) 3.9 (2.0-8.3) x10*3/uL Absolute Nucleated RBC 0.000 (0.0-0.012) X10*3/uL Nucleated RBC % (auto) 0.0 (0.0-0.2) /100WBC Sodium 140 (135-145) mmol/L Potassium 4.0 (3.3-5.1) mmol/L Chloride 109 H (96-108) mmol/L Carbon Dioxide 23 (22-29) mmol/L Anion Gap 12 (12-20) BUN 13 (9-16) mg/dL Creatinine 0.71 (0.5-1.4) mg/dL Estim Creat Clear Calc 119.8 Estimated GFR > 60 Random Glucose 116 H (60-115) mg/dL Calcium 8.9 (8.4-10.2) mg/dL Total Bilirubin 0.3 (0.0-1.0) mg/dL AST 27 (5-31) U/L ALT 37 H (0-31) U/L Alkaline Phosphatase 98 (39-117) U/L Total Protein 6.8 (6.5-8.0) g/dL Albumin 3.9 (3.5-5.0) g/dL Beta HCG, Quant 883 mIU/mL Independent Interpretation I performed an independent interpretation of an: Ultrasound Interpretation: pelvic ultrasound without gestational sac Radiology Impression Discussion of test interpretation with radiology: I have reviewed the radiologist's reading. Radiologist Impression: EXAMINATION: US OBSTETRICAL ULTRASOUND CLINICAL INFORMATION: Bleeding. Lowering hCG. COMPARISON: Pelvic ultrasound dated 05/19/2024. LMP: 04/01/2024. Gestational age by maternal dates is 7 weeks 1 day. Estimated date of delivery by maternal dates is 01/06/2025. TECHNIQUE: Transabdominal images were obtained. FINDINGS: The previously seen intrauterine gestational sac is no longer identified. Heterogeneous and thickened endometrium measuring up to 2.5 cm. No associated Doppler detectable vascular flow. No clear retained products of conception. Redemonstration of a fundal fibroid measuring up to 2.9 cm. Sonographically unremarkable right ovary measuring 3.0 x 1.8 x 2.2 cm with normal Doppler detectable vascular flow. Sonographically unremarkable left ovary measuring 2.0 x 1.2 x 1.7 cm with Doppler detectable vascular flow. No pelvic free fluid. US/US OB <= 14 weeks fetus IMPRESSION: 1. Previously seen intrauterine gestational sac no longer identified. Mildly heterogeneous and thickened endometrium without Doppler detectable vascular flow. No definite retained products of conception. 2. Sonographically unremarkable right and left ovary. Electronically signed by: Jason Sharma MD 05/21/2024 02:32 PM [facility] Workstation: [id number] External Record Review External record reviewed: Inpatient record Prescription Management I considered prescription management with: Pain Medication Social Determinants Patient?s care significantly limited by Social Determinants of Health including: Other Social Determinant of Health Critical Care Time Critical Care Time Critical Care Time: No Discharge Plan Discharge Clinical Impression: Complete Patient Disposition: Home, Self-Care Instructions: Miscarriage (ED) Additional Instructions: You were evaluated in the ED today for repeat blood work and ultrasound. As discussed, your hormone decreased from 1800 to 800. Your pelvic ultrasound does not demonstrate intrauterine gestational sac that was previously seen on ultrasound. These indicate that you have had a miscarriage. Please either follow-up with primary care provider in 2 days or return to the ED in 2 days for repeat hcg levels ( hormone) to ensure that it is still trending down. You may also follow up [facility] (Dr. Rose). A referral has been provided. Reach out to them to establish care. They will not call you. Continue Tylenol and ibuprofen at home for abdominal cramping. Continue taking macrobid at home for your urinary tract infection. Return with new or worsening symptoms such as worsening pain, bleeding, fevers, etc. In the case of an emergency call 911. Prescriptions: No Action nitrofurantoin monohyd/m-cryst [Macrobid] 100 mg capsule 100 mg PO BID 7 Days Qty: 14 0RF Rx Instructions: must administer with a meal/food Referrals: Tino Rose MD [Physician] - 2 days (complete ) Interventions: ED Discharge Assessment Last Done: 05/21/24 14:52 Discharge Date/Time: 05/21/24 14:54 Print Language: Faroese
[2024-05-21 14:52] VITALS: BP 125/86; PULSE 85; RESP 20; TEMP 37.1; O2SAT 100
== END 2024-05-21 14:54 | disposition home or self-care (01) ==
PROVIDERS: Emergency Provider Emergency Medicine
DX: O03.9 Complete or unspecified spontaneous abortion without complication (principal)
CPT/HCPCS: 36415; 76801; 80053; 84702; 85025; 99284

== ENCOUNTER 2024-05-26 08:03 | Outpatient (REF) | payer OTHER, SELFPAY ==
[2024-05-26 08:35] LABS: HCG Quantitative 62 mIU/mL
== END 2024-05-26 08:04 | disposition home or self-care (01) ==
LOC: HO.LAB 08:03
PROVIDERS: PCP Internal Medicine; Visit Provider Obstetrics & Gynecology
DX: O03.9 Complete or unspecified spontaneous abortion without complication (principal)
CPT/HCPCS: 36415; 84702; 99212

== ENCOUNTER 2024-05-26 10:04 | Outpatient (AMB) | payer OTHER, SELFPAY ==
[2024-05-26 10:07] VITALS: BP 110/60
--- NOTE | 2024-05-26 10:07 | MHC.OFFVIS ---
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 The patient went to the emergency room on 05/19 with vaginal bleeding the following workup was done 05/19/2024 pelvic ultrasound showed the following: IMPRESSION: 1. Intrauterine gestational sac with a pole. No heart rate identified. There appear to be 2 separate possible yolk sacs. 2. Findings consistent with subchorionic hemorrhage. 3. Redemonstration of a uterine fibroid. 4. Unremarkable right and left ovary. HCG was 1843, H&H 13.9/41.5 Instructions were given to patient to follow-up in 48 hours on 05/21/2024 , meanwhile the patient has started having heavier bleeding with passage of blood clots Presented to emergency room on 05/21, repeat pelvic ultrasound showed the following: IMPRESSION: 1. Previously seen intrauterine gestational sac no longer identified. Mildly heterogeneous and thickened endometrium without Doppler detectable vascular flow. No definite retained products of conception. 2. Sonographically unremarkable right and left ovary. H&H was 12.9/38.7, repeat hCG went down to 883 Repeat hCG on 05/26 went down to 62 Blood type O positive Since then, the patient has been doing well bleeding pelvic cramping has stopped completely PFSH Medical History Varicose vein of leg Surgical History Hx of section Social History Alcohol intake: current Alcohol intake frequency: holidays/special occasions only Female Reproductive History Menstrual Age of Menarche: 10 Review of Systems Const All systems reviewed & are unremarkable except as noted in HPI and below Physical Exam Vital Signs: Last Vital Signs BP 110/60 05/26/24 10:07 General: Yes no CVA tenderness External Female Exam: normal external appearance and normal appearance of the urethra Speculum Exam - Vagina: normal appearance of the vagina, normal palpation, no lesions, no masses and other (No blood per vagina) Speculum Exam - Cervix: normal appearance of the cervix, normal palpation, Cervical os closed, no lesions, no masses and nontender Bimanual exam- vagina & uterus: normal bimanual exam, normal palpation, uterine size normal, normal palpation, uterine shape normal, No Cervical tenderness present and non-tender Bimanual Exam- Adnexa, other: normal adnexae Back/Spine/Pelvis Back: no CVA tenderness Assessment & Plan Assessment & Plan (1) Complete : Code(s): O03.9 - Complete or unspecified spontaneous without complication Category: Medical Plan: GC/CT taken. Discussed with the patient the results of the hCG dropped down to 62, recommended repeat hCG in a week to follow it down to non levels. Signs and symptoms of incomplete were discussed with the patient, instructions given the patient to call or go to emergency room in case of pelvic cramping and or bleeding, fever above 100.4. And to schedule a follow-up appointment a week All questions answered, the patient verbalized understanding Orders: Orders HCG Quantitative 1 Week O03.9 - Complete or unspecified spontaneous without complication HCG Quantitative Today Z34.90 - Encounter for supervision of normal , unspecified, unspecified trimester Coding Level of Care Code Est Pt Level 3 (84710) Diagnoses Complete O03.9
== END 2024-05-26 10:54 | disposition home or self-care (01) ==
LOC: HO.HWS 10:04
PROVIDERS: PCP Internal Medicine; Visit Provider Obstetrics & Gynecology
DX: O03.9 Complete or unspecified spontaneous abortion without complication (principal)
CPT/HCPCS: 99213

== ENCOUNTER 2024-05-26 10:50 | Outpatient (REF) | payer OTHER, SELFPAY ==
[2024-05-27 14:32] LABS: CT PCR NOT DETECTED (Not Detect.); NG PCR NOT DETECTED (Not Detect.)
== END 2024-05-26 10:51 | disposition home or self-care (01) ==
LOC: HO.LNP 10:50
PROVIDERS: Visit Provider Obstetrics & Gynecology
DX: O03.9 Complete or unspecified spontaneous abortion without complication (principal)
CPT/HCPCS: 87491; 87591

== ENCOUNTER 2024-06-07 09:05 | Outpatient (REF) | payer OTHER, SELFPAY ==
[2024-06-07 10:00] LABS: HCG Quantitative < 2 mIU/mL
== END 2024-06-07 09:06 | disposition home or self-care (01) ==
LOC: HO.LAB 09:05
PROVIDERS: PCP Internal Medicine; Visit Provider Obstetrics & Gynecology
DX: Z30.09 Encounter for other general counseling and advice on contraception (principal); O03.9 Complete or unspecified spontaneous abortion without complication
CPT/HCPCS: 36415; 84702; 99212

== ENCOUNTER 2024-06-07 11:30 | Outpatient (AMB) | payer OTHER, SELFPAY ==
[2024-06-07 11:33] VITALS: BMI 34.5
--- NOTE | 2024-06-07 11:33 | A.OFFVIS_ITS ---
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 HCG done today was less than 2 PFSH Medical History Varicose vein of leg Surgical History Hx of section Social History Alcohol intake: current Alcohol intake frequency: holidays/special occasions only Female Reproductive History Menstrual Age of Menarche: 10 Review of Systems Const All systems reviewed & are unremarkable except as noted in HPI and below Reports as per HPI and Reports no additional complaints GI Reports no additional complaints Reports no additional complaints Physical Exam Vital Signs: BMI result Body Mass Index 34.5 Assessment & Plan Assessment & Plan (1) Complete : Code(s): O03.9 - Complete or unspecified spontaneous without complication Category: Medical Plan: Discussed with the patient the results of hCG less than 2. The patient was reassured. Instructions given the patient to call in case of pelvic cramping and or heavy vaginal bleeding and to schedule a annual exam appointment within few weeks. All questions answered, the patient verbalized understanding (2) Family planning: Code(s): Z30.09 - Encounter for other general counseling and advice on contraception Category: Social Hx Plan: Discussed with the patient the different options of control including control pills/Nuvaring, DMPA, different types of IUD ?s ( cu vs progesterone) , sterilization. All the pros, cons, risks and benefits of each were discussed with the patient. The patient decided to go ahead with Mirena IUD, so a more detailed discussion was carried on including mechanism of action, risks (infection, uterine perforation, failure with ectopic , septic AB, ovarian cyst and pelvic pain, increased breast cancer risk and others) benefits (efficient contraceptive method, others), GC/CG were taken and negative and the patient was asked to call day one of next cycle for IUD insertion. Coding Level of Care Code Est Pt Level 3 (33740) Diagnoses Complete O03.9 Family planning Z30.09
== END 2024-06-07 11:50 | disposition home or self-care (01) ==
LOC: HO.HWS 11:30
PROVIDERS: PCP Internal Medicine; Visit Provider Obstetrics & Gynecology
DX: O03.9 Complete or unspecified spontaneous abortion without complication (principal); Z30.09 Encounter for other general counseling and advice on contraception
CPT/HCPCS: 99213

== ENCOUNTER 2024-08-03 08:30 | Outpatient (REF) | payer OTHER, SELFPAY ==
--- OUTSIDE RECORDS SUMMARY | 2024-08-03 11:18 | XMS_ITS | Clinical Summary ---
Author Organization [employer] Address [address] [place] [address] 7 [place] [address] Care Team Providers Care Supervisor Contact And Service Clerks Name Role Phone Bert Garza MD Primary Care Prov ider Allergies No known active allergies Medications azelastine (Astelin) 0.1 % nasal spray USE TWO SPRAYS IN EACH NOSTRIL TWICE DAILY 30 mL 1 10/22/19 23 Active ibuprofen 800 MG tablet TAKE ONE TABLET EVERY 8 HOURS WITH FOOD NEEDED MILD PAIN 90 tablet 05/26/20 23 Active albuterol 108 (90 Base) MCG/ACT inhaler Inhale 2 puffs every 4 (four) hours if needed for wheezing or shortness of breath. 18 g 1 07/07/19 24 Active Spacer/Aero-Ho lding Chambers (OptiChamber Nakia) misc 1 each every 4 (four) hours if needed (asthma). 1 each 07/07/19 24 Active azithromycin (Zithromax Z-Navjot) 250 MG tablet Take 2 tablets once on day 1, then 1 tablet 1x/day for 4 days. 6 tablet 07/07/19 24 Active fluticasone (Flonase Allergy Relief) 50 MCG/ACT nasal spray Administer 1 spray into each nostril in the morning. Shake gently. Before first use, prime pump. After use, clean tip and replace cap. 16 g 1 07/22/19 24 Active betamethasone valerate (Valisone) 0.1 % cream Apply topically 2 times daily. to rash located on arms. 15 g 1 07/22/19 24 Active cyclobenzaprin e (Flexeril) 10 MG tablet Take 1 tablet (10 mg) by mouth at bedtime for 10 days. 10 tablet 12/16/19 24 Active dexAMETHasone (Decadron) 4 MG tablet Take 1 tablet (4 mg) by mouth 2 times daily for 5 days. 10 tablet 12/16/19 24 Active loratadine (Claritin) 10 MG tablet TAKE ONE TABLET BY MOUTH EVERY DAY NEEDED FOR ALLERGIES 90 tablet 1 05/16/20 24 Active multivitamin () 27-0.8 MG tablet TAKE 1 TABLET BY MOUTH EVERY MORNING 90 tablet 1 05/12/20 24 Active ibuprofen 400 MG tablet TAKE ONE TABLET EVERY 6 HOURS NEEDED FOR PAIN 30 tablet 05/16/20 24 Active etonogestrel-e thinyl estradiol (Nuvaring) 0.12-0.015 MG/24HR vaginal ring INSERT 1 RING VAGINALLY. LEAVE IN FOR THREE WEEKS THEN REMOVE 1 Ring. 11 07/08/19 25 Active etonogestrel-e thinyl estradiol (NuvaRing) 0.12-0.015 MG/24HR vaginal ring Insert vaginally and leave in place for 3 consecutive weeks, then remove for 1 week. Discard old ring. Repeat cycle. 1 Ring 11 03/17/20 23 025 Discontinued Active Problems Problem Noted Date Diagnosed Date Cervical radiculopathy 12/16/2023 Assessment & Plan (12/16/2023 7:05 PM EDT): Most likely DDD c-spine. 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 Seasonal allergies 10/21/2022 Varicose veins of lower extremity 10/21/2022 Encounters Date Type Department Care Team Description 07/08/2024 Telephone [facility] PEDS [address] [place] [address] Kamryn Fox RN Walk-In 07/08/2024 Refill [facility] [address] [place] [address] Marli English MD 06/27/2024 Telephone [facility]EDS [address] [place] [address] Bert Garza MD 06/07/2024 Orders Only GENERIC EXTERNAL DATA DEPARTMENT Provider, Generic External Data 05/26/2024 Orders Only GENERIC EXTERNAL DATA DEPARTMENT Provider, Generic External Data 05/20/2024 11:15 AM EST Office Visit [facility] [address] [place] [address] Bert Garza MD affected by intrauterine (Primary Dx) 05/20/2024 Travel 05/19/2024 Telephone [facility] [address] [place] [address] Bert Garza MD Chart Prep 05/19/2024 Orders Only GENERIC EXTERNAL DATA DEPARTMENT Provider, Generic External Data 05/13/2024 Telephone [facility] [address] [place] [address] Bert Garza MD 05/13/2024 Telephone [facility] MEDICINE [address] [place] [phone] Bert Garza MD I 05/13/2024 Telephone [facility] [address] [place] [address] Bert Garza MD provider out 05/13/2024 Travel 05/12/2024 Refill [facility] [address] [place] [address] Mario Walker MD 05/11/2024 Refill [facility] [address] [place] [address] Gena Schultz CNM 05/11/2024 Refill [facility] [address] [place] [address] Bert Garza MD 05/09/2024 Telephone [facility] [address] [place] [address] Bert Garza MD Referral from Last 3 Months Immunizations Name Administration Dates Next Due Influenza injectable quadriv alent IIV4 with preservative 05/05/2017 Influenza injectable quadrivalent preservative f ree 04/09/2018 Tdap 04/09/2018 Social History Tobacco Use Types Packs/Day Years Used Date Smoking Tobacco: Never Passive Smoke Exposure: Never Smokeless Tobacco: Never Tobacco Cessation:Counseling Given: Not Answered Alcohol Use Standard Drinks/Week Comments Never 0 (1 standard drink = 0.6 oz pur e alcohol) Comments No Sex and Gender Information Value Date Recorded Sex Assigned at Female 05/05/2022 10:31 AM EDT Legal Sex Female 10:31 AM EDT Gender Identity Female 05/05/2022 10:31 AM EDT Sexual Orientation Straight 05/05/2022 10 :31 AM EDT Last Filed Vital Signs Vital Sign Reading Time Taken Comments Blood Pressure 114/70 05/20/2024 11:08 AM EST Pulse 78 05/20/2024 11:08 AM EST Temperature 36.2 ??C (97.1 ??F) 05/20/2024 11:[address] Respiratory Rate 14 05/20/2024 11:08 AM EST Oxygen Saturation 98% 05/20/2024 11:08 AM EST Inhaled Oxygen Concentration - - Weight 92.3 kg (203 lb 6.4 oz) 05/20/2024 11:08 AM EST Height 165.1 cm (5' 5 ) 05/20/2024 11:08 AM EST Body Mass Index 33.85 05/20/2024 11:08 AM EST Plan of Treatment Health Maintenance Due Date Last Done Comments Depression Screening 1985 SDOH Screening 1985 Alcohol/Substance Use Screening 1995 Family Planning (PISQ) 1998 Hepatitis C Screening 2001 Hepatitis B Vaccines (1 of 3 - 19+ 3-dose series) 2002 Mammogram 2023 COVID-19 Vaccine (2023-2 5 season) 2024 Influenza Vaccine (#1) 2024 8, 05/05/2017 Tobacco Screening 12/15/2024 12/16/2023 Pap Smear 03/04/2025 03/04/2022 Cervical Cancer Screening 03/04/2027 HPV/Cotest 03/04/2027 03/04/2022 DTaP/Tdap/Td Vaccines (2 - T d or Tdap) 04/09/2028 04/09/2018 Zoster Vaccines (1 of 2) 2033 RSV Patients and Patients Aged 60 years or older (1 - 1-dose 75+ series) 2058 HIV Screening Completed 04/22/2021 HIB Vaccines Aged Out No longer eligi ble based on patient's age to complete this topic HPV Vaccines Aged Out No longer eligi ble based on patient's age to complete this topic Hepatitis A Vaccines Aged Out No long er eligible based on patient's age to complete this topic IPV Vaccines Aged Out No longer eligi ble based on patient's age to complete this topic Meningococcal Vaccine Aged Out No jarrett eulalia eligible based on patient's age to complete this topic Pneumococcal Vaccine: Pediatrics (0 to 5 Years) and At-Risk Patients (6 to 49) Years) Aged Out No longer eligible b ased on patient's age to complete this topic RSV under 20 months Aged Out No longe r eligible based on patient's age to complete this topic Rotavirus Vaccines Aged Out No longer eligible based on patient's age to complete this topic Procedures Procedure Name Priority Date/Time Associated Diagnosis Comments HCG, TOTAL, QN Routine 06/07/2024 9:33 AM EST HCG, TOTAL, QN Routine 05/26/2024 8:10 AM EST US OB PELVIS TRANSVAGINAL Routine 05/19/2024 4:17 PM EST URINALYSIS, COMPLETE, WITH REFLEX TO CULTURE Routine 05/19/2024 3:04 PM EST HCG, TOTAL, QN Routine 05/19/2024 3:03 PM EST LIPASE Routine 05/19/2024 3:03 PM EST MAGNESIUM Routine 05/19/2024 3:03 PM EST BASIC METABOLIC PANEL Routine 05/19/2024 3:03 PM EST HEPATIC FUNCTION PANEL Routine 05/19/2024 3:03 PM EST CBC WITH AUTO DIFFERENTIAL Routine 05/19/2024 3:03 PM EST ABO GROUP AND RH TYPE Routine 05/19/2024 3:02 PM EST CULTURE, URINE, ROUTINE Routine 05/19/2024 12:00 AM EST THINPREP IMAGING PAP AND HPV MRNA E6/E7 WITH REFLEX TO HPV 16,18/45 Routine 03/04/2022 9:08 AM EDT HIV 1/2 ANTIGEN/ANTIBODY, FOURTH GENERATION W/RFL Routine 04/22/2021 9:52 AM EDT from Last 3 Months or Most Recently Relevant to Health Maintenance Results * hCG, Total, Quantitative (06/07/2024 9:33 AM EST) Only the most recent of3 resultswithin the time period is included. HCG Quantitative <2 mIU/mL [facility] Comment:Weeks post LMP Appro ximate hCG(Last Menstrual Period) Range (mIU/ml)3 - 4 weeks 9 - 1304 - 5 weeks 75 - 2,6005 - 6 weeks 850 - 20,8006 - 7 weeks 4000 - 100,2007 - 12 weeks 11,500 - 289,27086 - 16 weeks 18,300 - 137,44829 - 29 weeks (2nd trimester) 1,400 - 53,46363 - 41 weeks (3rd trimester) 940 - 60,000The Ayala B- hCG assay is used for the early detection ofpregnancy; it cannot be used to diagnose any conditionunrelated to . If a B-hCG level is not supportedby the clinical evidence, results should be confirmed by analternative method (qualitative urine hCG, for example). 06/07/2024 9:33 AM EST 06/07/2024 9:33 AM EST us Generic External Data Provider LAB BLOOD ORDERAB LES Final Result [facility] [address] [place] [address] [phone] * US OB Pelvis with Transvaginal (05/19/2024 4:17 PM EST) Anatomical Region Laterality Modality Pelvis Ultrasound 05/19/2024 4:17 PM EST Narrative 05/19/2024 5:54 PM EST ? [facility] ?[address] ?[place] [address] ? Ultrasound Report ? Signed ? Patient: Madsen Anu,Margarita ?MR#: [id number] ?? [id number] ? : 1985 ?Acct:[id number] ? Age/Sex: 38 / F ?ADM Date: 05/19/24 ? Loc: HO.ED ? Attending Dr: ? Ordering Physician: Marce Benedict ?? Date of Service: 05/19/24 ?? Procedure(s): US OB pelvic and transvaginal ?? Accession Number(s): [id number] ? cc: Bert Garza MD; Marce Benedict ? EXAMINATION: ? US OBSTETRICAL ULTRASOUND ? CLINICAL INFORMATION: ? Vaginal bleeding and cramping. ? COMPARISON: ? Pelvic ultrasound dated 06/03/2022. ? LMP: 04/01/2024. ?? Gestational age by maternal dates is 6 weeks 6 days. ?? Estimated date of delivery by maternal dates is . ? TECHNIQUE: ?? Transabdominal and transvaginal imaging was obtained. ? FINDINGS: ?? There is an intrauterine gestational sac and pole. The pole ?? corresponds to a gestational age of 6 weeks 0 days. Unremarkable yolk ?? sac measuring 0.5 cm. Additional cystic structure which has the ?? appearance of a second yolk sac is partially visualized. No heart ?? rate detected within the pole. ? Adjacent to the gestational sac there is an irregular area of ?? hypoechoic echogenicity, consistent with subchorionic hemorrhage. ?? Redemonstration of a uterine fibroid measuring up to 2.2 cm. ? MATERNAL ADNEXA: ? The right maternal ovary measures 3 x 1.7 x 2.3 cm. ? The left maternal ovary measures 2.3 x 1.2 x 1.6 cm. ? Normal Doppler detectable vascular flow within the right and left ?? ovary. There is no significant maternal adnexal mass. No maternal ?? pelvic ascites. ? US/US OB pelvic and transvaginal ?? IMPRESSION: ?? 1. Intrauterine gestational sac with a pole. No heart rate ?? identified. There appear to be 2 separate possible yolk sacs. ?? 2. Findings consistent with subchorionic hemorrhage. ?? 3. Redemonstration of a uterine fibroid. ?? 4. Unremarkable right and left ovary. ? Electronically signed by: ??Jason Sharma MD ??05/19/2024 05:51 PM EST ? Dictated By: ?Jason Sharma MD ? Signed By: ?<Electronically signed by Jason Sharma MD in OV> ?05/19/24 1751 ? DD/ 1617 ? TD/TT: 05/19/24 1640 ? Vmware Engineer: SR ? Procedure Note Donrajinderinterpreter, Image - 05/19/2024 [place] [address] Ultrasound Report Signed Patient: Margarita WangMR#: [id number] : 1985Acct:[id number] Age/Sex: 38 / FADM Date: 05/19/24 Loc: HO.ED Attending Dr: Ordering Physician: Marce Benedict Date of Service: 05/19/24 Procedure(s): US OB pelvic and transvaginal Accession Number(s): [id number] cc: Bert Garza MD; Marce Benedict EXAMINATION: US OBSTETRICAL ULTRASOUND CLINICAL INFORMATION: Vaginal bleeding and cramping. COMPARISON: Pelvic ultrasound dated 06/03/2022. LMP: 04/01/2024. Gestational age by maternal dates is 6 weeks 6 days. Estimated date of delivery by maternal dates is . TECHNIQUE: Transabdominal and transvaginal imaging was obtained. FINDINGS: There is an intrauterine gestational sac and pole. The pole corresponds to a gestational age of 6 weeks 0 days. Unremarkable yolk sac measuring 0.5 cm. Additional cystic structure which has the appearance of a second yolk sac is partially visualized. No heart rate detected within the pole. Adjacent to the gestational sac there is an irregular area of hypoechoic echogenicity, consistent with subchorionic hemorrhage. Redemonstration of a uterine fibroid measuring up to 2.2 cm. MATERNAL ADNEXA: The right maternal ovary measures 3 x 1.7 x 2.3 cm. The left maternal ovary measures 2.3 x 1.2 x 1.6 cm. Normal Doppler detectable vascular flow within the right and left ovary. There is no significant maternal adnexal mass. No maternal pelvic ascites. US/US OB pelvic and transvaginal IMPRESSION: 1. Intrauterine gestational sac with a pole. No heart rate identified. There appear to be 2 separate possible yolk sacs. 2. Findings consistent with subchorionic hemorrhage. 3. Redemonstration of a uterine fibroid. 4. Unremarkable right and left ovary. Electronically signed by: Jason Sharma MD 05/19/2024 05:51 PM EST Workstation: [id number] Dictated By: Jason Sharma MD Signed By: <Electronically signed by Jason Sharma MD in OV> 05/19/24 1751 DD/ 1617 TD/TT: 05/19/24 1640 Vmware Engineer: us [facility] External Provider IMG US PROCEDURES Final Result * (ABNORMAL) Urinalysis, Complete, with Reflex to Culture (05/19/2024 3:04 PM EST) Color Urine pink [facility] Appearance Urine Hazy [facility] PH 5.0 5.0 - 9.0 [facility] Glucose Urine UA Negative Negative mg/dL [facility] Urine Blood Large (3+)(A) Negative [facility] Specific [place] - Urine 1.015 1.005 - 1.025 [facility] Urine Protein 100 (2+)(A) Neg-Trace mg/dL [facility] Urine Ketones Trace Negative mg/dL [facility] Nitrite Urine Positive(A) Negative [facility] Leukocyte Esterase Urine Trace(A) Negative [facility] RBC Urine >20(A) 0 - 2 /HPF [facility] Urine WBC 11-20(A) 0 - 5 /HPF [facility] Urine Squamous Epithelial Cell 11-20 0 - 2 /HPF [facility] Urine Bacteria 2+ None Seen [facility] Hyaline Casts, Urine 0-2 0 - 2 /LPF [facility] 05/19/2024 3:04 PM EST 05/19/2024 3:11 PM EST Narrative [facility] - 05/19/2024 3:24 PM EST Urine, Clean Catch us Generic External Data Provider LAB URINE ORDERAB LES Final Result [facility] [address] [place] [phone] * CBC auto differential (05/19/2024 3:03 PM EST) White Blood Count 7.2 4.8 - 10.8 X10*3/uL [facility] Red Blood Count 4.56 4.20 - 5.50 X10*6/uL [facility] Hemoglobin 13.9 12.0 - 16.0 g/dl [facility] Hematocrit 41.5 37.0 - 47.0 % [facility] Mean Corpuscular Volume 91.0 80.0 - 98.0 fL [facility] Mean Corpuscular Hemoglobin 30.5 27.0 - 33.0 pg [facility] Mean Corpuscular HGB Conc 33.5 31.0 - 35.0 g/dl [facility] Red Cell Distribution Width 12.8 11.0 - 16.0 % [facility] Platelet Count 235 160 - 400 X10*3/uL [facility] Mean Platelet Volume 9.9 9.4 - 12.3 fL [facility] Neutrophils Percent Auto 59.6 45 - 73 % [facility] Imm Gran Pct Auto 0.3 0.0 - 0.4 % [facility] Lymphocytes Percent Auto 28.6 20 - 40 % [facility] Monocytes Percent Auto 9.2 2 - 11 % [facility] Eosinophils Percent Auto 1.9 0 - 4 % [facility] Basophils Percent Auto 0.4 0 - 2 % [facility] NRBC Pct Auto 0.0 0.0 - 0.2 /100WBC [facility] Neutrophils Absolute Auto 4.3 2.0 - 8.3 x10*3/uL [facility] Imm Gran Abs Auto 0.02 0.00 - 0.03 X10*3/uL [facility] Lymphocytes Absolute Auto 2.1 1.2 - 4.9 X10*3/uL [facility] Monocytes Absolute Auto 0.7 0.1 - 1.2 X10*3/uL [facility] Eosinophils Absolute Auto 0.1 0.0 - 0.4 X10*3/uL [facility] Basophils Absolute Auto 0.0 0.0 - 0.2 X10*3/uL [facility] NRBC Abs Auto 0.000 0.0 - 0.012 X10*3/uL [facility] 05/19/2024 3:03 PM EST 05/19/2024 3:11 PM EST us Generic External Data Provider LAB BLOOD ORDERAB LES Final Result Performing Organization Address [facility] Co de Phone Number [facility] [address] [place] [phone] * Magnesium (05/19/2024 3:03 PM EST) Magnesium 2.1 1.6 - 2.6 mg/dL [facility] 05/19/2024 3:03 PM EST 05/19/2024 3:11 PM EST us Generic External Data Provider LAB BLOOD ORDERAB LES Final Result Performing Organization Address City/[facility]/ZIP Co de Phone Number [facility] [address] [place] [address] [phone] * Lipase (05/19/2024 3:03 PM EST) Pathologist [facility] Lipase 23 8 - 78 U/L [facility] 05/19/2024 3:03 PM EST 05/19/2024 3:11 PM EST Generic External Data Provider LAB BLOOD ORDERAB LES Final Result Performing Organization Address [facility] de Phone Number [facility] [address] [place] [address] [phone] * (ABNORMAL) Hepatic Function Panel (05/19/2024 3:03 PM EST) [facility] Bilirubin, Total 0.2 0.0 - 1.0 mg/dL [facility] Bilirubin, Direct <0.2 0.0 - 0.5 mg/dL [facility] Aspartate Amino Transferase 32(H) 5 - 31 U/L [facility] Comment:Slight Hemolysis.Int erpret result with caution. Alanine Aminotransferase 33(H) 0 - 31 U/L [facility] Total Protein 7.1 6.5 - 8.0 g/dL [facility] Albumin Level 3.9 3.5 - 5.0 g/dL [facility] Alkaline Phosphatase 88 39 - 117 U/L [facility] 05/19/2024 3:03 PM EST 05/19/2024 3:11 PM EST Generic External Data Provider LAB BLOOD ORDERAB LES Final Result Performing Organization Address [facility] Co de Phone Number [facility] [address] [place] [address] [phone] * (ABNORMAL) Basic Metabolic Panel (05/19/2024 3:03 PM EST) [facility] Sodium 135 135 - 145 mmol/L [facility] Potassium 4.0 3.3 - 5.1 mmol/L [facility] Comment:Slight Hemolysis.Int erpret result with caution. Chloride 107 96 - 108 mmol/L [facility] Carbon Dioxide 24 22 - 29 mmol/L [facility] Anion Gap 8(L) 12 - 20 [facility] Urea Nitrogen (BUN) 14 9 - 16 mg/dL [facility] Creatinine, Serum 0.74 0.5 - 1.4 mg/dL [facility] Creatinine Clr Calc Pharmacy 111.7 [facility] Comment:Provided height and weight: 162.56 cm,93 kg.eGFR (calculated from the MDRD study equation) and eCrCl(calculated from the Cockcroft-Gault equation) are based ondifferent parameters and may not yield comparable results.If eCrCl result is absurd, please check patient'sheight/weight. Estimated Glomerular Filt Rate >60 [facility] Comment:Chronic Kidney Disea se: Estimated GFR < 60 mL/min/1.88l2Sfzwvp Kidney Disease: Estimated GFR < 15 mL/min/1.73m2 Glucose 102 60 - 115 mg/dL [facility] Calcium 8.7 8.4 - 10.2 mg/dL [facility] 05/19/2024 3:03 PM EST 05/19/2024 3:11 PM EST Generic External Data Provider LAB BLOOD ORDERAB LES Final Result Performing Organization Address [facility] Co de Phone Number [facility] [address] [place] [phone] * ABO Group And RH Type (05/19/2024 3:02 PM EST) Blood Type OP [facility] 05/19/2024 3:02 PM EST 05/19/2024 3:13 PM EST Generic External Data Provider LAB BLOOD BANK TE ST ORDERABLES Final Result Performing Organization Address [facility] Co de Phone Number [facility] [address] [place] [address] [phone] * Culture, Urine, Routine (05/19/2024 12:00 AM EST) Urine Urine specimen obtained by clean catch procedure / Unknown 05/19/2024 05/19/2024 Comment:UACC Narrative [facility] - 05/22/2024 7:55 AM EST Urine Culture Report Result Urine Culture > 100,000 cfu/ml Urine Culture Mixed bacterial reuben characteristic of Urine Culture urogenital contamination. Specimen Source: Urine clean catch us Generic External Data Provider LAB MICROBIOLOGY - GENERAL ORDERABLES Final Result [facility] [address] [place] [address] [phone] * THINPREP TIS PAP AND HPV mRNA E6/E7 WITH REFLEX TO HPV 16,18/45 (03/04/2022 9:08 AM EDT) Clinical Information: None given [employer] [facility] COMMENT SEE COMMENT [facility] Comment: EXPLANATORY NOTE: ? The Pap is a screening test for cervical cancer. It is ?? not a diagnostic test and is subject to false negative ?? and false positive results. It is most reliable when a ?? satisfactory sample, regularly obtained, is submitted ?? with relevant clinical findings and history, and when ?? the Pap result is evaluated along with historic and ?? current clinical information. ?? COMMENT: This Pap test has been evaluated with computer assisted technology. [employer] [facility] Cytotechnologis t: SEE COMMENT [facility] Comment: RMM, CT(ASCP) CT screening location: [address] ??[address] HPV nRNA E6/E7 Not Detected Not Detected [employer] [facility] Comment: Methodology: Bariatric Nurse-Mediated Amplification This assay detects E6/E7 viral messenger RNA (mRNA) from 14 high-risk HPV types (16,18,31,33,35,39,45,51,52,56,58,59,66,68). ? Cervical sources are required for HPV testing. If a vaginal source from a patient who has had a total hysterectomy with removal of cervix was ?? submitted, please contact the testing laboratory for alternative testing options. ?? For additional information, please refer to [email or web address]/JVL010z3 (This link if provided for information/ educational purposes only.) Infection Shift in vaginal reuben suggestive of bacterial vaginosis. [facility] Interpretation/ Result: Negative for intraepithelial lesion or malignancy. [facility] LMP: 02/12/22 [facility] Prev. BX: NONE GIVEN [facility] Prev. PAP: NIL 04/2018 [facility] SOURCE: None given [facility] Statement Of Adequacy: SEE COMMENT [facility] Comment: Satisfactory for evaluation. Endocervical/transformation zone component present. 03/04/2022 9:08 AM EDT Gena WILLIS LAB PATHOLOGY ORDERABLES Final Result [facility] [address] * HIV 1/2 ANTIGEN/ANTIBODY,FOURTH GENERATION W/RFL (04/22/2021 9:52 AM EDT) HIV-1/2 ANTIGEN AND ANTIBODIES, 4TH GENERATION W/ REFLEX NON-REACT ROBERTO NON-REACT ROBERTO [facility] Comment: HIV-1 antigen and HIV-1/HIV-2 antibodies were not detected. There is no laboratory evidence of HIV infection. ?? PLEASE NOTE: This information has been disclosed to you from records whose confidentiality may be protected by state law. ??If your state requires such protection, then the state law prohibits you from making any further disclosure of the information without the specific written consent of the person to whom it pertains, or as otherwise permitted by law. A general authorization for the release of medical or other information is NOT sufficient for this purpose. ? For additional information please refer to [email or web address]/BHF404 (This link is being provided for informational/ educational purposes only.) ? The performance of this assay has not been clinically validated in patients less than 2 years old. ?? 04/22/2021 9:52 AM EDT Bert Yang MD LAB BLOOD ORDERABL ES Final Result [facility] [address] from Last 3 Months or Most Recently Relevant to Health Maintenance Insurance [facility] [facility] Care Teams Supervisor Contact And Service Clerks Relationship Specialty Start Date End Date Bert Garza MD [address] [place] [address] PCP - General Internal Medicine 11/29/19
--- OUTSIDE RECORDS SUMMARY | 2024-08-03 11:18 | XMS_ITS | Encounter Summary ---
Author Organization [employer] Address [address] [place] [address] [place] [address] Care Team Providers Care Lieutenant Ballistics Name Role Phone Bret Garza MD Primary Care Prov ider Encounter Details Date Type Department Care Team ([facility] st Contact Info) Description 07/02/2023 Orders Only [facility] CHC MED & PEDS [address] [place], [place] [phone] Marli English MD [address] [place], [place] [phone] Viral upper respiratory tract infection (Primary Dx) Social History Tobacco Use Types Packs/Day Years Used Date Smoking Tobacco: Never Passive Smoke Exposure: Never Smokeless Tobacco: Never Alcohol Use Standard Drinks/Week Comments Never 0 (1 standard drink = 0.6 oz pur e alcohol) Comments No Sex and Gender Information Value Date Recorded Sex Assigned at Female 05/05/2022 10:31 AM EDT Legal Sex Female 10:31 AM EDT Gender Identity Female 05/05/2022 10:31 AM EDT Sexual Orientation Straight 05/05/2022 10 :31 AM EDT documented as of this encounter Plan of Treatment Not on file documented as of this encounter Visit Diagnoses Diagnosis Viral upper respiratory tract infection- Primary Acute upper respiratory infections of unspecified site documented in this encounter Care Teams Lieutenant Ballistics Relationship Specialty Start Date End Date Bert Garza MD [address] [place] [address] PCP - General Internal Medicine 11/29/19 documented as of this encounter
--- OUTSIDE RECORDS SUMMARY | 2024-08-03 11:18 | XMS_ITS | Encounter Summary ---
Author Organization [employer] Address [address] [place] [address] 7 [place] [address] Care Team Providers Care Physician Coder Name Role Phone Bert Garza MD Primary Care Prov ider Reason for Visit * Reason Onset Date Comments FYI 05/13/2024 Encounter Details Date Type Department Care Team ([facility] st Contact Info) Description 05/13/2024 Telephone [facility] [address] [place] [address] Bert Garza MD 505 [place] [address] FYI Social History Tobacco Use Types Packs/Day Years [...] AM EDT documented as of this encounter Miscellaneous Notes * Telephone Encounter - Mj Guzman - 05/13/2024 1:27 PM EST Tc from pt informing she never receive the call or any link for telephone visit. Pt stated is not the first time,no missed calls either she was up all day and no call went thru . documented in this encounter Plan of Treatment Not on file documented as of this encounter Visit Diagnoses Not on filedocumented in this encounter Care Teams Physician Coder Relationship Specialty Start Date End Date LoyolaBert Linares MD [address] [place] [phone] PCP - General Internal Medicine 11/29/19 documented as of this encounter
--- OUTSIDE RECORDS SUMMARY | 2024-08-03 11:18 | XMS_ITS | Encounter Summary ---
Author Organization [employer] Address [address] [place] [address] [place] [address] Care Team Providers Care Public Defender Name Role Phone Bert Garza MD Primary Care Prov ider Reason for Visit * Reason Comments Med Refill Encounter Details Date Type Department Care Team ([facility] st Contact Info) Description 10/30/2022 Refill [facility] MED & PEDS 505 [place], [place] [phone] Aide Dumont MD Social History Tobacco Use Types Packs/Day Years Used Date Smoking Tobacco: Never Assessed Comments Unknown Sex and Gender Information Value Date Recorded Sex Assigned at Female 05/05/2022 10:31 AM EDT Legal Sex Female 10:31 AM EDT Gender Identity Female 05/05/2022 10:31 AM EDT Sexual Orientation Straight 05/05/2022 10 :31 AM EDT COVID-19 Exposure Response Date Recorded In the last 10 days, have yo u been in contact with someone who was confirmed or suspected to have Coronavirus/COVID-19? No / Unsure 10/21/2022 9:59 AM EDT documented as of this encounter Plan of Treatment Not on file documented as of this encounter Visit Diagnoses Not on filedocumented in this encounter Care Teams Public Defender Relationship Specialty Start Date End Date Bert Garza MD 505 [place] [address] PCP - General Internal Medicine 11/29/19 documented as of this encounter
--- OUTSIDE RECORDS SUMMARY | 2024-08-03 11:18 | XMS_ITS | Encounter Summary ---
Author Organization [employer] Address [address] [place] [address] [place] [address] Care Team Providers Care Desktop Support Specialist Name Role Phone Bert Garza MD Primary Care Prov ider Encounter Details Date Type Department Care Team ([facility] st Contact Info) Description 06/09/2023 Orders Only [facility] MED & PEDS [address] [place] [address] Melina Syed LPN Social History Tobacco Use Types Packs/Day Years [...] on filedocumented in this encounter Care Teams Desktop Support Specialist Relationship Specialty Start Date End Date Bert Garza MD [address] [place] [address] PCP - General Internal Medicine 11/29/19 documented as of this encounter
--- OUTSIDE RECORDS SUMMARY | 2024-08-03 11:18 | XMS_ITS | Encounter Summary ---
Author Organization [email or web address] Address [address] [place] [address] [place] [address] Care Team Providers Care Tank House Operator Name Role Phone Bert Garza MD Primary Care Prov ider Reason for Visit * Reason Comments Med Refill Encounter Details Date Type Department Care Team ([facility] st Contact Info) Description 07/08/2024 Refill [facility] CH[facility] MED & PEDS [address] [place] [address] Marli English MD 505 [place] [address] Social History Tobacco Use Types Packs/Day Years [...] on filedocumented in this encounter Care Teams Tank House Operator Relationship Specialty Start Date End Date Bert Garza MD [address] [place] [address] PCP - General Internal Medicine 11/29/19 documented as of this encounter
--- OUTSIDE RECORDS SUMMARY | 2024-08-03 11:18 | XMS_ITS | Encounter Summary ---
Author Organization [employer] Address [address] [place] [address] 7 [place] [address] Care Team Providers Care Director Decision Support Name Role Phone Bert Garza MD Primary Care Prov ider Reason for Visit * Reason Onset Date Comments Walk-In 07/08/2024 Encounter Details Date Type Department Care Team ([facility] st Contact Info) Description 07/08/2024 Telephone [facility] MED & PEDS [address] [place] [address] Kamryn Fox RN Walk-In Social History Tobacco Use Types Packs/Day Years [...] encounter Miscellaneous Notes * Telephone Encounter - Kamryn Fox RN - 07/08/2024 10:55 AM EST Pt was a walk in to the [facility] office due to concerns and questions about the refilling of her prescribed Etonogestrel-Ethinyl Estradiol (Nuvaring) prescription. The pt initially had concerns that she was unable to pick her prescription up at the [facility] pharmacy. RN advised the pt that the prescription was refilled today by covering provider Dr. Sampson. Pt was able to chicken picker the prescription today at the pharmacy and advised to call CARMELO Dumont at [facility] if any questions or side effects occur due to the medication Pt stated understanding and had no further questions or concerns at this time. Pt to call PRN documented in this encounter Plan of Treatment Not on file documented as of this encounter Visit Diagnoses Not on filedocumented in this encounter Care Teams Director Decision Support Relationship Specialty Start Date End Date Bert Garza MD [address] [place] [phone] PCP - General Internal Medicine 11/29/19 documented as of this encounter
[2024-08-12 15:03] LABS: HPV Genotype 16 Negative (Negative); HPV Genotype 18 Negative (Negative); HPV High Risk Negative (Negative)
== END 2024-08-03 08:31 | disposition home or self-care (01) ==
LOC: HO.LNP 08:30
PROVIDERS: PCP Internal Medicine; Visit Provider Obstetrics & Gynecology
DX: Z01.419 Encounter for gynecological examination (general) (routine) without abnormal findings (principal)
CPT/HCPCS: 87626; 88175; 99396; 99459

== ENCOUNTER → 2024-08-29 09:45 | Outpatient (BNV) | payer OTHER, SELFPAY | PROVIDERS: PCP Internal Medicine; Visit Provider Internal Medicine | DX: Z12.31 Encounter for screening mammogram for malignant neoplasm of breast (principal) | CPT/HCPCS: 77063; 77067 ==

== ENCOUNTER 2024-08-29 09:50 | Outpatient (REF) | payer OTHER, SELFPAY ==
--- OUTSIDE RECORDS SUMMARY | 2024-08-29 10:52 | XMS_ITS | Encounter Summary ---
Author Organization [employer] [facility] Address [address] [place] [address] Care Team Providers Care Forming Roll Operator Heavy Duty Name Role Phone Bert Garza MD Primary Care Prov ider Reason for Visit * Reason Comments Med Refill Encounter Details Date Type Department Care Team ([facility] Contact Info) Description 10/30/2022 Refill [facility] MED & PEDS [address] [place], [place] [phone] Aide Dumont MD Social History Tobacco Use [...] as of this encounter Plan of Treatment Upcoming Encounters Date Type Department Care Team ([facility] Contact Info) Description 10/18/2024 9:45 AM EDT Office Visit [facility] MED & PEDS [address] [place], [place] [phone] Marli English MD 505 [place], [place] [phone] documented as of this encounter Visit Diagnoses Not on filedocumented in this encounter Care Teams Forming Roll Operator Heavy Duty Relationship Specialty Start Date End Date Bert Garza MD [address] [place] [address] PCP - General Internal Medicine 11/29/19 documented as of this encounter
--- OUTSIDE RECORDS SUMMARY | 2024-08-29 10:52 | XMS_ITS | Encounter Summary ---
Author Organization [employer] Address [address] [place] [address] Care Team Providers Care Environmental Planning Engineer Name Role Phone Bert Garza MD Primary Care Prov ider Encounter Details Date Type Department Care Team ([facility] Contact Info) Description 08/03/2024 Orders Only GENERIC EXTERNAL DATA DEPARTMENT Provider, Generic External Data Social History Tobacco Use Types Packs/Day Years [...] Upcoming Encounters Date Type Department Care Team ([facility] Contact Info) Description 10/18/2024 9:45 AM EDT Office Visit [facility] CHC MED & PEDS 505 [place] [address] Marli English MD [address] [place] [address] documented as of this encounter Procedures Procedure Name Priority Date/Time Associated Diagnosis Comments HPV DNA, LOW/HIGH RISK Routine 08/03/2024 9:38 AM EST PAP SMEAR Routine 08/03/2024 9:38 AM EST documented in this encounter Results * HPV DNA, Low/High Risk (08/03/2024 9:38 AM EST) HPV High Risk Negative Negative [facility] HPV Genotype 16 Negative Negative [facility] HPV Genotype 18 Negative Negative [facility] Comment:HPV testing performe d at [facility] (CLIA#[id number]), [address] [place] [address].Testing for HPV was performed using the [employer] SonarMed0system. The presence of HPV in the female genital tract isassociated with a number of diseases, including cervicalcarcinoma. The HPV DNA high risk pool tests for HPV 31, 33,35, 39, 45, 51, 52, 56, 58, 59, 66 and 68. The testing forHPV 16 and 18 genotypes has also been performed. A positiveresult indicates detection of nucleic acid sequences fromone or more subtypes, whereas a negative result indicatessuch sequences were not detected. 08/03/2024 9:38 AM EST 08/04/2024 7:07 AM EST us Generic External Data Provider LAB BLOOD ORDERAB LES Final Result Performing Organization Address City/State/[facility] Co de Phone Number [facility] [address] [place] [phone] * Pap Smear (08/03/2024 9:38 AM EST) 08/03/2024 9:38 AM EST 08/04/2024 6:05 AM EST Narrative [facility] - 08/12/2024 11:15 AM EST ----- ------- Name: Margarita Wang ? Age/Sex: 39/F ? : 1985 Unit#: [id number] ?? Attend Dr: Tino Rose MD ?Re08/03/24 ?Status: DEP REF ? Location: HO.LNP ?Disch: ? ----- ------- SPEC : [id number] ? RECD: 08/04/24 ? STATUS: ??SOUT ? REQ NUM: [id number] ? ALBIN: 08/03/24 ? SUBM DR: Tino Rose MD ? ENTERED: ??08/04/24 ?SP TYPE: Pap Smr ?OTHR DR: Bert Garza MD ORDERED: ??Pap Smear ? Interpretation ?? Satisfactory for evaluation. ?? Negative for intraepithelial lesion or malignancy. ?? No endocervical cells seen. ? HPV High Risk: ??Negative ? HPV Genotyping 16: ??Negative ?? HPV Genotyping 18: ??Negative ?Clinical Information LMP:07/16/24 Previous PAP test:2018 Other surgery: Other history: ? Material Received ?? ThinPrep-Cervical Copies To: ?? Bert Garza MD ?? [facility] ?? [address] ?? [place] [address] ?? [phone] ?? Tino Rose MD ?? [facility] ?? [address] ?? [place], [place] [address] ?? [phone] ----- ------- Signed (signature on file) KEL Reddy (ASCP) 08/12/24 1115 ? ----- ------- ? END OF REPORT ? us Generic External Data Provider LAB CYTOLOGY ORDE WYATT Final Result [facility] [address] [place] [address] [phone] documented in this encounter Visit Diagnoses Not on filedocumented in this encounter Care Teams Environmental Planning Engineer Relationship Specialty Start Date End Date Bert Garza MD [address] [place] [address] PCP - General Internal Medicine 11/29/19 documented as of this encounter
--- OUTSIDE RECORDS SUMMARY | 2024-08-29 10:52 | XMS_ITS | Encounter Summary ---
Author Organization [employer] [facility] Address [address] [place] [address] Care Team Providers Care Education Counselor Name Role Phone Bert Garza MD Primary Care Prov ider Encounter Details Date Type Department Care Team ([facility] Contact Info) Description 06/09/2023 Orders Only [facility] MED & PEDS [address] [place] [address] Melina Syed LPN Social History Tobacco Use [...] Upcoming Encounters Date Type Department Care Team ([facility] Contact Info) Description 10/18/2024 9:45 AM EDT Office Visit [facility] CHC MED & PEDS [address] [place] [address] Marli English MD 505 [place] [address] documented as of this encounter Visit Diagnoses Not on filedocumented in this encounter Care Teams Education Counselor Relationship Specialty Start Date End Date Bert Garza MD [address] [place] [address] PCP - General Internal Medicine 11/29/19 documented as of this encounter
--- OUTSIDE RECORDS SUMMARY | 2024-08-29 10:52 | XMS_ITS | Encounter Summary ---
Author Organization [employer] Address [address] [place] [address] Care Team Providers Care Process Operator Name Role Phone Bert Garza MD Primary Care Prov ider Encounter Details Date Type Department Care Team ([facility] Contact Info) Description 07/02/2023 Orders Only [facility] MED & PEDS [address] [place] [address] Marli English MD [address] [place], [place] [phone] Viral upper respiratory tract infection (Primary Dx) [...] Upcoming Encounters Date Type Department Care Team ([facility] Contact Info) Description 10/18/2024 9:45 AM EDT Office Visit [facility] MED & PEDS [address] [place] [address] Marli English MD [address] [place] [address] documented as of this encounter Visit Diagnoses Diagnosis Viral upper respiratory tract infection- Primary Acute upper respiratory infections of unspecified site documented in this encounter Care Teams Process Operator Relationship Specialty Start Date End Date Bert Garza MD [address] [place] [address] PCP - General Internal Medicine 11/29/19 documented as of this encounter
--- OUTSIDE RECORDS SUMMARY | 2024-08-29 10:52 | XMS_ITS | Clinical Summary ---
Author Organization [employer] Address [address] [place] [address] 7 [place] [address] Care Team Providers Care Ton Cylinder Inspector Name Role Phone Bert Garza MD Primary Care Prov ider Allergies No known active allergies Medications azelastine (Astelin) 0.1 % nasal spray USE TWO SPRAYS IN EACH NOSTRIL TWICE DAILY 30 mL 1 3 Active ibuprofen 800 MG tablet TAKE ONE TABLET EVERY 8 HOURS WITH FOOD NEEDED MILD PAIN 90 tablet 3 Active albuterol 108 (90 Base) MCG/ACT inhaler Inhale 2 puffs every 4 (four) hours if needed for wheezing or shortness of breath. 18 g 1 4 Active Spacer/Aero-Ho lding Chambers (OptiChamber Nakia) misc 1 each every 4 (four) hours if needed (asthma). 1 each 4 Active azithromycin (Zithromax Z-Navjot) 250 MG tablet Take 2 tablets once on day 1, then 1 tablet 1x/day for 4 days. 6 tablet 4 Active fluticasone (Flonase Allergy Relief) 50 MCG/ACT nasal spray Administer 1 spray into each nostril in the morning. Shake gently. Before first use, prime pump. After use, clean tip and replace cap. 16 g 1 4 Active cyclobenzaprin e (Flexeril) 10 MG tablet Take 1 tablet (10 mg) by mouth at bedtime for 10 days. 10 tablet 4 Active dexAMETHasone (Decadron) 4 MG tablet Take 1 tablet (4 mg) by mouth 2 times daily for 5 days. 10 tablet 4 Active multivitamin () 27-0.8 MG tablet TAKE 1 TABLET BY MOUTH EVERY MORNING 90 tablet 1 4 Active ibuprofen 400 MG tablet TAKE ONE TABLET EVERY 6 HOURS NEEDED FOR PAIN 30 tablet 4 Active etonogestrel-e thinyl estradiol (Nuvaring) 0.12-0.015 MG/24HR vaginal ring INSERT 1 RING VAGINALLY. LEAVE IN FOR THREE WEEKS THEN REMOVE 1 Ring. 11 5 Active diphenhydrAMIN E (BENADryl) 25 MG capsule Take 2 capsules (50 mg) by mouth every 6 (six) hours if needed for itching. May take 1-2 capsules prn rashor itching 30 capsule 1 5 08/15/19 26 Active triamcinolone (Kenalog) 0.1 % cream Apply topically 2 times daily. 30 g 1 5 Active cetirizine (ZyrTEC) 10 MG tablet Take 1 tablet (10 mg) by mouth if needed each day (rash, itching). Prn. 30 tablet 5 Active betamethasone valerate (Valisone) 0.1 % cream Apply topically 2 times daily. to rash located on arms. 15 g 1 4 08/15/19 25 Discontinu ed(Ineffec tive) loratadine (Claritin) 10 MG tablet TAKE ONE TABLET BY MOUTH EVERY DAY NEEDED FOR ALLERGIES 90 tablet 1 4 08/15/19 25 Discontinu ed(Ineffec tive) Active Problems Problem Noted Date Diagnosed Date [...] Encounters Date Type Department Care Team Description 08/15/2024 10:40 AM EST Office Visit [facility] [address] [place], [place] [phone] Mario Walker MD Rash (Primary Dx); Skin lesion of neck; Elevated blood pressure reading in office without diagnosis of hypertension 08/03/2024 Orders Only GENERIC EXTERNAL DATA DEPARTMENT Provider, Generic External Data 07/08/2024 Telephone [facility] MED & PEDS [address] [place], [place] [phone] Kamryn Fox RN Walk-In 07/08/2024 Refill [facility] MED & PEDS [address] [place], [place] [phone] Marli English MD 06/27/2024 Telephone [facility] MED & PEDS [address] [place], [place] [phone] Bert Garza MD 06/07/2024 Orders Only GENERIC EXTERNAL DATA DEPARTMENT Provider, Generic External Data from Last 3 Months Immunizations Name Administration [...] Sign Reading Time Taken Comments Blood Pressure 145/80 08/15/2024 10:30 AM EST Pulse 81 08/15/2024 10:30 AM EST Temperature 36.7 ??C (98.1 ??F) 08/15/2024 10:[address] Respiratory Rate 18 08/15/2024 10:30 AM EST Oxygen Saturation 97% 08/15/2024 10:30 AM EST Inhaled Oxygen Concentration - - Weight 101 kg (223 lb) 08/15/2024 10:30 AM EST Height 165.1 cm (5' 5 ) 05/20/2024 11:08 AM EST Body Mass Index 37.11 05/20/2024 11:08 AM EST Plan of Treatment Upcoming Encounters Date Type Department Care Team ([facility] st Contact Info) Description 10/18/2024 9:45 AM EDT Office Visit [facility] MED & PEDS [address] [place] [address] Marli English MD [address] [place] [address] Health Maintenance Due Date Last Done Comments Depression Screening 1985 SDOH Screening 1985 Alcohol/Substance Use Screening 1995 Family Planning (PISQ) 1998 Hepatitis C Screening 2001 Hepatitis B Vaccines (1 of 3 - 19+ 3-dose series) 2002 Mammogram 2023 COVID-19 Vaccine ( - 2023-2 5 season) 2024 Influenza Vaccine (#1) 2024 8, 05/05/2017 Tobacco Screening 08/15/2025 08/15/2024 Pap Smear 08/03/2027 08/03/2024, 03/04/2022 DTaP/Tdap/Td Vaccines (2 - T d or Tdap) 04/09/2028 04/09/2018 Cervical Cancer Screening 08/03/2029 HPV/Cotest 08/03/2029 08/03/2024, 03/04/2022 Zoster Vaccines (1 of 2) 2033 RSV [...] Procedure Name Priority Date/Time Associated Diagnosis Comments PAP SMEAR Routine 08/03/2024 9:38 AM EST HPV DNA, LOW/HIGH RISK Routine 08/03/2024 9:38 AM EST HCG, TOTAL, QN Routine 06/07/2024 9:33 AM EST HIV 1/2 ANTIGEN/ANTIBODY, FOURTH GENERATION W/RFL Routine 04/22/2021 9:52 AM EDT from Last 3 Months or Most Recently Relevant to Health Maintenance Results * HPV DNA, Low/High Risk (08/03/2024 9:38 AM EST) HPV High Risk Negative Negative [facility] HPV Genotype 16 Negative Negative [facility] HPV Genotype 18 Negative Negative [facility] Comment:HPV testing performe d at [facility] (CLIA#[id number]), [address] [place] [address].Testing for HPV was performed using the [employer]0system. The presence of HPV in the female [...] Provider LAB BLOOD ORDERAB LES Final Result [facility] [address] [place] [phone] * Pap Smear (08/03/2024 9:38 AM EST) 08/03/2024 9:38 AM EST 08/04/2024 6:05 AM EST Narrative [facility] - 08/12/2024 11:15 AM EST ----- ------- Name: Margarita Wang ? Age/Sex: 39/F ? : 1985 Unit#: [id number] ?? Attend Dr: Tino Rose MD ?Re08/03/24 ?Status: DEP REF ? Location: HO.LNP ?Disch: ? ----- ------- SPEC : [id number] ? RECD: 08/04/24 ? STATUS: ??SOUT ? REQ NUM: [id number] ? ALBIN: 08/03/24 ? SUBM DR: Tino [...] [facility] ?? [address] ?? [place] [address] ?? [phone] ?? Tino Rose MD ?? [facility] Women[facility] Services ?? [address] ?? [place] [address] ?? [phone] ----- ------- Signed (signature on file) KEL Reddy ([facility]) 08/12/24 1115 ? ----- ------- ? END OF REPORT ? us Generic External Data Provider LAB CYTOLOGY MISSY SCHNEIDER Final Result [facility] [address] [place] [phone] * hCG, Total, Quantitative (06/07/2024 9:33 AM EST) Pathologist [facility] HCG Quantitative <2 mIU/mL [facility] Comment:Weeks post LMP Appro ximate hCG(Last Menstrual Period) Range (mIU/ml)3 - 4 weeks 9 - 1304 - 5 weeks 75 - 2,6005 - 6 weeks 850 - 20,8006 - 7 weeks 4000 - 100,2007 - 12 weeks 11,500 - 289,99163 - 16 weeks 18,300 - 137,40869 - 29 weeks (2nd trimester) 1,400 - 53,81215 - 41 weeks (3rd trimester) 940 - [...] Provider LAB BLOOD ORDERAB LES Final Result [facility] [address] [place] [address] [phone] * HIV 1/2 ANTIGEN/ANTIBODY,FOURTH GENERATION W/RFL (04/22/2021 9:52 AM EDT) Pathologist [facility] HIV-1/2 ANTIGEN AND ANTIBODIES, 4TH GENERATION W/ REFLEX NON-REACT ROBERTO NON-REACT ROBERTO [facility] Comment: HIV-1 antigen and HIV-1/HIV-2 [...] ? For additional information please refer to http://education.Insights.[employer]/faq/WPL740 (This link is being provided for informational/ educational purposes only.) ? The performance of this assay has not been clinically validated in patients less than 2 years old. ?? 04/22/2021 9:52 AM EDT us Bert Yang MD LAB BLOOD ORDERABL ES Final Result [facility] [address] from Last 3 Months or Most Recently Relevant to Health Maintenance Insurance [employer] FULL [facility] STANDARD * Guarantor: Margarita Wang Account Type Relation to Patient Date of Phone Billing Address Personal/Family Self [address] [place] Care Teams Ton Cylinder Inspector Relationship Specialty Start Date End Date Bert Garza MD [address] [facility] [place] PCP - General Internal Medicine 11/29/19
--- OUTSIDE RECORDS SUMMARY | 2024-08-29 10:52 | XMS_ITS | Encounter Summary ---
Author Organization [employer] Address [address] [place] [address] 7 [place] [address] Care Team Providers Care Varnish Melter Helper Name Role Phone Bert Garza MD Primary Care Prov ider Reason for Visit * Reason Onset Date Comments FYI 05/13/2024 Encounter Details Date Type Department Care Team ([facility] Contact Info) Description 05/13/2024 Telephone [facility] MEDICINE [address] [place] [address] Bert Garza MD [address] [place] [address] FYI Social History Tobacco Use Types Packs/Day [...] documented in this encounter Plan of Treatment Upcoming Encounters Date Type Department Care Team ([facility] st Contact Info) Description 10/18/2024 9:45 AM EDT Office Visit [facility] MED & PEDS [address] [place] [address] Marli English MD [address] [place] [address] documented as of this encounter Visit Diagnoses Not on filedocumented in this encounter Care Teams Varnish Melter Helper Relationship Specialty Start Date End Date Bert Garza MD [address] [place] [address] PCP - General Internal Medicine 11/29/19 documented as of this encounter
--- OUTSIDE RECORDS SUMMARY | 2024-08-29 10:52 | XMS_ITS | Encounter Summary ---
Author Organization [employer] Address [address] [place] [address] [place] [address] Care Team Providers Care Molding Room Supervisor Name Role Phone Bert Garza MD Primary Care Prov ider Reason for Referral * Consultation (Routine) - Closed Specialty Diagnoses / Procedures Referred By Contac t Referred To Contact Dermatology / Family Medicine Diagnoses Rash Skin lesion of neck Mario Walker MD [address] [place] [address] Phone: tel: fax: Marli English MD [address] [place] [address] Phone: tel: fax: Referral ID Status Reason Start Date Expiration Date V isits Requested Visits Authorized [id number] Closed Consult and Treat 08/15/2024 08/15/2025 1 1 Reason for Visit * Reason Comments Rash Encounter Details Date Type Department Care Team ([facility] Contact Info) Description 08/15/2024 10:40 AM EST Office Visit [facility] [address] [place] [id number] Mario Walker MD [address] [place], [place] [phone] Rash (Primary Dx); Skin lesion of neck; Elevated blood pressure reading in office without diagnosis of hypertension Social History Tobacco Use Types Packs/Day Years [...] AM EDT documented as of this encounter Last Filed Vital Signs Vital Sign Reading Time Taken Comments Blood Pressure 145/80 08/15/2024 10:30 AM EST Pulse 81 08/15/2024 10:30 AM EST Temperature 36.7 ??C (98.1 ??F) 08/15/2024 10:[address] Respiratory Rate 18 08/15/2024 10:30 AM EST Oxygen Saturation 97% 08/15/2024 10:30 AM EST Inhaled Oxygen Concentration - - Weight 101 kg (223 lb) 08/15/2024 10:30 AM EST Height - - Body Mass Index 37.11 05/20/2024 11:08 AM EST documented in this encounter Progress Notes * Mario Walker MD - 08/15/2024 10:40 AM EST Subjective Patient ID: Margarita Brennan is a 39 y.o. female. HPI Margarita had onset of itchy rash on arms that spread to legs. Has h/o similar itchy rash that improved with betamethasone valerate in past, but it is not helpingnow. Loratadine is not helping. Hs tried Eucerin cream with no change. Has h/o eczema in Epic. Also has a mole on right lower neck that has become itchy. Denies SOB, swelling, sensation of throat tightness, new medications, soap, shampoo, detergent, or deodorant. Denies tick bite, or known contacts who have a rash. Lives with and 2 sons. LMP=last week. Never smoked. 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 Patient Active Problem List Diagnosis Eczema Recurrent cold sores Seasonal allergies Varicose veins of lower extremity H/O herpes labialis Cervical radiculopathy Radiculopathy of cervicothoracic region The following portions of the chart were reviewed this encounter and updated as appropriate: Tobacco Allergies Meds Problems Med Hx Surg Hx Fam Hx Review of Systems Constitutional: Negative for fever. Respiratory: Negative for shortness of breath. Cardiovascular: Negative for chest pain. Gastrointestinal: Negative for abdominal pain. Skin: Positive for rash. Neurological: Negative for headaches. Objective Physical Exam Constitutional: Appearance: Normal appearance. HENT: Right Ear: Tympanic membrane, ear canal and external ear normal. Left Ear: Tympanic membrane, ear canal and external ear normal. Nose: Nose normal. Mouth/Throat: Mouth: Mucous membranes are moist. Pharynx: Oropharynx is clear. Eyes: Conjunctiva/sclera: Conjunctivae normal. Pupils: Pupils are equal, round, and reactive to light. Cardiovascular: Rate and Rhythm: Normal rate and regular rhythm. Heart sounds: No murmur heard. Pulmonary: Effort: Pulmonary effort is normal. Breath sounds: Normal breath sounds. Musculoskeletal: General: Normal range of motion. Cervical back: No tenderness. Skin: Findings: No rash. Comments: Dry, scaly macular rash with scattered hyperpigmented maculopapular lesions over extensorsurfaces bilat arms and forearms, and small patch on each medial thigh. Has oval, raised, hyperpigmented ?mole on right lower neck. Neurological: Mental Status: She is alert. Gait: Gait is intact. Psychiatric: Mood and Affect: Mood normal. Behavior: Behavior normal. Procedures Assessment/Plan Diagnoses and all orders for this visit: Rash ?eczema. Continue Eucerin cream. Stop loratadine and betamethasone valerate. Prescribed Zyrtec, Benadryl, and triamcinolone acetonide valerate 0.1% cream. Referred to [facility] Derm/skin Skin lesion of neck Referred to [facility] Derm/skin. Elevated blood pressure reading in office without diagnosis of hypertension Has home BP monitor. Reviewed BP parameters, given written BP log that includes BP parameters, to keep daily. Call if BP readings are elevated. Other orders - diphenhydrAMINE (BENADryl) 25 MG capsule; Take 2 capsules (50 mg) by mouth every 6 (six) hours ifneeded for itching. May take 1-2 capsules prn rashor itching - triamcinolone (Kenalog) 0.1 % cream; Apply topically 2 times daily. documented in this encounter Plan of Treatment Upcoming Encounters Date Type Department Care Team (Late st Contact Info) Description 10/18/2024 9:45 AM EDT Office Visit [facility] [address] [place] [address] Marli English MD [address] [place] [address] Scheduled Referrals Name Type Priority Associated Diagnoses Orde r Schedule Referral to [facility] Derm Skin Outpatient Referral Routine Rash Skin lesion of neck Expected: 08/15/2024 (Approximate), Expires: 08/15/2025 documented as of this encounter Visit Diagnoses Diagnosis Rash- Primary Rash and other nonspecific skin eruption Skin lesion of neck Elevated blood pressure reading in office without diagnosis of hypertension documented in this encounter Care Teams Molding Room Supervisor Relationship Specialty Start Date End Date LoyolaBert Linares MD [address] [place] [address] PCP - General Internal Medicine 11/29/19 documented as of this encounter
== END 2024-08-29 09:51 | disposition home or self-care (01) ==
LOC: HO.MAMMO 09:50
PROVIDERS: PCP Internal Medicine; Visit Provider Obstetrics & Gynecology
DX: Z12.31 Encounter for screening mammogram for malignant neoplasm of breast (principal)
CPT/HCPCS: 77063; 77067

== ENCOUNTER 2024-10-03 12:39 | Outpatient (REF) | payer OTHER, SELFPAY ==
--- NOTE | ~2024-10-03 | MM_ITS ---
EXAMINATION: MM DIAGNOSTIC DIGITAL BREAST TOMOSYNTHESIS, RIGHT Limited right breast ultrasound. CLINICAL INFORMATION: Call back from screening for asymmetry medial right breast on CC view. COMPARISON: Mammography: Priors on PACS. TECHNIQUE: Digital breast tomosynthesis is performed in both the craniocaudal and mediolateral oblique views along with computer-aided detection (CAD). Synthesized 2D images are generated from the tomosynthesis. FINDINGS: There are scattered areas of fibroglandular density (ACR BI-RADS breast composition Category b). Circumscribed oval mass persists in the medial right breast on CC view. No suspicious calcifications or other abnormal findings. Targeted color Doppler ultrasound demonstrates a minimally complicated cyst or adjacent cysts with thin intervening septation which is avascular at 3:00 3 cm from the nipple measuring approximately 6 x 3 x 6 mm which correlates with the circumscribed oval mass on mammography. MM/MM tomosynthesis added views R IMPRESSION: Probably benign adjacent minimally complicated cyst at 3:00 3 cm from the nipple on ultrasound. Recommend 6 month follow-up ultrasound for further evaluation of stability. ASSESSMENT: BI-RADS BI-RADS 3 - Probably benign finding(s) - 6 month follow-up suggested RECOMMENDATION: 6 Month F/U Results were provided to the patient at time of visit by the technologist. This patient's information was entered into a reminder system with a target due date for their next mammogram. Electronically signed by: Paulina Carballo DO 10/03/2024 02:44 PM EDT
--- OUTSIDE RECORDS SUMMARY | 2024-10-03 14:18 | XMS_ITS | Encounter Summary ---
Author Organization [facility] [employer] [facility] Address [address] [place] [address] Care Team Providers Care Test Evaluator Name Role Phone Bert Garza MD Primary Care Prov ider Encounter Details Date Type Department Care Team ([facility] Contact Info) Description 07/02/2023 Orders Only [facility] MED & PEDS [address] [place], [place] [phone] Marli English MD [address] [place], [place] [phone] Viral upper respiratory tract infection (Primary Dx) [...] Upcoming Encounters Date Type Department Care Team ([facility] Contact Info) Description 10/18/2024 9:45 AM EDT Office Visit [facility] MED & PEDS [address] [place], [place] [phone] Marli English MD [address] [place], [place] [phone] documented as of this encounter Visit Diagnoses Diagnosis Viral upper respiratory tract infection- Primary Acute upper respiratory infections of unspecified site documented in this encounter Care Teams Test Evaluator Relationship Specialty Start Date End Date Bert Garza MD [address] [place] [address] PCP - General Internal Medicine 11/29/19 documented as of this encounter
--- OUTSIDE RECORDS SUMMARY | 2024-10-03 14:18 | XMS_ITS | Encounter Summary ---
Author Organization [employer] [facility] [facility] [employer] Address [address] [place] [address] Care Team Providers Care Business Analytics Intern Name Role Phone Bert Garza MD Primary Care Prov ider Reason for Visit * Reason Onset Date Comments FYI 05/13/2024 Encounter Details Date Type Department Care Team ([facility] Contact Info) Description 05/13/2024 Telephone [facility] MEDICINE [address] [place] [address] Bert Garza MD [address] [place] [address] FYI Social History Tobacco Use Types Packs/Day [...] Upcoming Encounters Date Type Department Care Team ([facility] Contact Info) Description 10/18/2024 9:45 AM EDT Office Visit [facility] CHC MED & PEDS [address] [place] [address] Marli English MD [address] [place] [address] documented as of this encounter Visit Diagnoses Not on filedocumented in this encounter Care Teams Business Analytics Intern Relationship Specialty Start Date End Date Bert Garza MD [address] [place] [address] PCP - General Internal Medicine 11/29/19 documented as of this encounter
--- OUTSIDE RECORDS SUMMARY | 2024-10-03 14:18 | XMS_ITS | Clinical Summary ---
Author Organization [employer] Address [address] [place] [address] 7t [place] [address] Care Team Providers Care Mash Grinder Name Role Phone Bert Garza MD Primary Care Prov ider Allergies No known active allergies Medications azelastine (Astelin) 0.1 % nasal spray USE TWO SPRAYS IN EACH NOSTRIL TWICE DAILY 30 mL 1 10/22/19 23 Active albuterol 108 (90 Base) MCG/ACT inhaler Inhale 2 puffs every 4 (four) hours if needed for wheezing or shortness of breath. 18 g 1 07/07/19 24 Active Spacer/Aero-Ho lding Chambers (OptiChamber Nakia) misc 1 each every 4 (four) hours if needed (asthma). 1 each 07/07/19 24 Active fluticasone (Flonase Allergy Relief) 50 MCG/ACT nasal spray Administer 1 spray into each nostril in the morning. Shake gently. Before first use, prime pump. After use, clean tip and replace cap. 16 g 1 07/22/19 24 Active cyclobenzaprin e (Flexeril) 10 MG tablet Take 1 tablet (10 mg) by mouth at bedtime for 10 days. 10 tablet 12/16/19 24 Active multivitamin () 27-0.8 MG tablet TAKE 1 TABLET BY MOUTH EVERY MORNING 90 tablet 1 05/12/20 24 Active ibuprofen 400 MG tablet TAKE ONE TABLET EVERY 6 HOURS NEEDED FOR PAIN 30 tablet 05/16/20 24 Active etonogestrel-e thinyl estradiol (Nuvaring) 0.12-0.015 MG/24HR vaginal ring INSERT 1 RING VAGINALLY. LEAVE IN FOR THREE WEEKS THEN REMOVE 1 Ring. 11 07/08/19 25 Active diphenhydrAMIN E (BENADryl) 25 MG capsule Take 2 capsules (50 mg) by mouth every 6 (six) hours if needed for itching. May take 1-2 capsules prn rashor itching 30 capsule 1 08/15/19 25 026 Active cetirizine (ZyrTEC) 10 MG tablet Take 1 tablet (10 mg) by mouth if needed each day (rash, itching). Prn. 30 tablet 08/15/19 25 Active triamcinolone (Kenalog) 0.1 % cream Apply topically 2 times daily. 30 g 1 09/06/19 25 Active ibuprofen 800 MG tablet TAKE ONE TABLET EVERY 8 HOURS WITH FOOD NEEDED MILD PAIN 90 tablet 05/26/20 23 025 Discontinued(Th erapy completed) azithromycin (Zithromax Z-Navjot) 250 MG tablet Take 2 tablets once on day 1, then 1 tablet 1x/day for 4 days. 6 tablet 07/07/19 24 025 Discontinued(Th erapy completed) dexAMETHasone (Decadron) 4 MG tablet Take 1 tablet (4 mg) by mouth 2 times daily for 5 days. 10 tablet 12/16/19 24 025 Discontinued(Th erapy completed) triamcinolone (Kenalog) 0.1 % cream Apply topically 2 times daily. 30 g 1 08/15/19 25 025 Discontinued(Re order (will not trigger notification to Pharmacy)) Active Problems Problem Noted Date Diagnosed Date [...] Encounters Date Type Department Care Team Description 09/05/2024 1:00 PM EST Telemedicine [facility] MED & PEDS [address] [place] [address] Bert Garza MD Elevated blood-pressure reading, without diagnosis of hypertension (Primary Dx); Dietary counseling; Exercise counseling 09/05/2024 Telephone [facility] [address] [place] [address] Bert Garza MD No Show 09/05/2024 Telephone [facility] [address] [place] [address] Bert Garza MD 09/05/2024 Travel 09/02/2024 Telephone [facility] [address] [place] [address] Bert Garza MD chart prep 08/31/2024 Travel 08/30/2024 Telephone [facility] [address] [place] [address] Bert Garza MD 08/15/2024 10:40 AM EST Office Visit [facility] [address] [place] [address] Mario Walker MD Rash (Primary Dx); Skin lesion of neck; Elevated blood pressure reading in office without diagnosis of hypertension 08/03/2024 Orders Only GENERIC EXTERNAL DATA DEPARTMENT Provider, Generic External Data 07/08/2024 Telephone [facility] [address] [place] [address] Kamryn Fox RN Walk-In 07/08/2024 Refill [facility] [address] [place] [address] Marli English MD from Last 3 Months Immunizations Name Administration [...] drink = 0.6 oz pur e alcohol) Depression Answer Date Recorded Patient Health Questionnaire-9 Score 1 09/05/2024 Patient Health Questionnaire-9 Score 1 09/05/2024 Last PHQ-9: Questionnaire Data Not on file 0 09/05/2024 Housing Stability Answer Date Recorded What is your housing situation today? I have more osorio 09/05/[address] you li ve. Do you have problems with any of the following? None of the above 09/05/2024 Food Insecurity Answer Date Recorded Within the past 12 months, y ou worried that your food would run out before you got money to buy more: Never True 09/05/2024 Within the past 12 months,th e food you bought just didn't last and you didn't have enough money to get more: Never True 09/2024 Transportation Answer Date Recorded In the past 12 months, has l ack of transportation kept you from medical appts, meetings, work or from getting things needed for daily living? No 09/05/2024 Utilities Answer Date Recorded In the past 12 months, has t he electric, gas, oil or water company threatened to shut off services in your home? No 09/05/2024 Depression Answer Date Recorded Patient Health Questionnaire-2 Score 0 09/05/2024 Comments No Sex and Gender Information Value [...] Description 10/18/2024 9:45 AM EDT Office Visit [facility] [address] [place] [address] Marli English MD [address] [place] [address] Health Maintenance Due Date Last Done Comments SDOH Screening 1983 Family Planning (PISQ) 1998 Hepatitis C Screening 2001 Hepatitis B Vaccines (1 of 3 - 19+ 3-dose series) 2002 COVID-19 Vaccine (2023-2 5 season) 2024 Influenza Vaccine (#1) 2024 8, 05/05/2017 Tobacco Screening 08/15/2025 08/15/2024 Alcohol/Substance Use Screening 09/05/2025 09/05/2024 Depression Screening 09/05/2025 09/05/2024, 09/05/2024 Mammogram 08/29/2026 08/29/2024 Pap Smear 08/03/2027 08/03/2024, 03/04/2022 DTaP/Tdap/Td Vaccines [...] Procedure Name Priority Date/Time Associated Diagnosis Comments BI MAMMOGRAM SCREENING TOMOSYNTHESIS BILATERAL Routine 08/29/2024 10:16 AM EST PAP SMEAR Routine 08/03/2024 9:38 AM EST HPV DNA, LOW/HIGH RISK Routine 9:38 AM EST HIV 1/2 ANTIGEN/ANTIBODY, FOURTH GENERATION W/RFL Routine 04/22/2021 9:52 AM EDT from Last 3 Months or Most Recently Relevant to Health Maintenance Results * BI Mammogram Screening Tomosynthesis Bilateral (08/29/2024 10:16 AM EST) Anatomical Region Laterality Modality Breast Bilateral Mammography 08/29/2024 10:1 6 AM EST Narrative 09/03/2024 11:35 AM EST ? [facility] [place] ? [address] [facility] [address] ?[place] [address] ? Mammography Report ? Signed ? Patient: Madsen Anu,Margarita ?MR#: [id number] ?? [id number] ? : 1985 ?Acct:[id number] ? Age/Sex: 39 / F ?ADM Date: 02/24/25 ? Loc: HO.MAMMO ? Attending Dr: Tino Rose MD ? Ordering Physician: Tino Rose MD ?Results: 0Incompl ?? ete: Needs Additional Imaging Evaluation ? Date of Service: 08/29/24 ?Follow Up: Additional Imagi ?? ng ? Procedure(s): MM tomosynthesis screening BI ?? Accession Number(s): [id number] ? cc: Bert Garza MD; Tino Rose MD ? EXAMINATION: ?? MM SCREENING DIGITAL BREAST TOMOSYNTHESIS, BILATERAL ? CLINICAL INFORMATION: ? Screening. Asymptomatic. ? COMPARISON: ?? Mammography: Baseline. ? TECHNIQUE: ?? Digital breast mammography with tomosynthesis is performed in both the ?? craniocaudal and mediolateral oblique views along with computer-aided ?? detection (CAD). ? FINDINGS: ?? The breasts are heterogeneously dense, which may obscure small masses ?? (ACR BI-RADS breast composition Category c). ?? Left: ?? There are no significant masses, abnormal calcifications, or other ?? abnormalities. ? Right: ?? Oval mass medial breast middle depth on CC view. ?? No suspicious calcifications or other abnormal findings. ? MM/MM tomosynthesis screening BI ?? IMPRESSION: ?? Additional imaging is recommended ? ASSESSMENT: ? BI-RADS BI-RADS 0 - Incomplete: Needs additional Imaging. ? RECOMMENDATION: ?? 1. Additional views of the right breast starting with ultrasound. ?? 2. Radiology department staff will contact the patient for additional ?? imaging. ? Additional Imaging required ? This examination should not preclude the clinical evaluation of a ?? suspicious palpable abnormality. ? This patient's information was entered into a reminder system with a ?? target due date for their next mammogram. ? Electronically signed by: ??Paulina Carballo DO ??09/03/2024 11:33 AM EST ?? RP ? Dictated By: ?Paulina Carballo DO ? Signed By: ?<Electronically signed by Paulina Carballo, DO in OV> ? 09/03/243 ? DD/ 1016 ? TD/TT: 08/29/24 1016 ? Ferryboat Pilot: ? Procedure Note Donthaliater, Image - [facility] [address] [place] [address] Mammography Report Signed Patient: Margarita WangMR#: [id number] : 1985Acct:[id number] Age/Sex: 39 / FADM Date: 08/29/24 Loc: HO.MAMMO Attending Dr: Tino Rose MD Ordering Physician: Tino Roseults: 0Incompl ete: Needs Additional Imaging Evaluation Date of Service: 08/29/24Follow Up: Additional Imagi ng Procedure(s): MM tomosynthesis screening BI Accession Number(s): [id number] cc: Bert Garza MD; Tino Rose MD EXAMINATION: MM SCREENING DIGITAL BREAST TOMOSYNTHESIS, BILATERAL CLINICAL INFORMATION: Screening. Asymptomatic. COMPARISON: Mammography: Baseline. TECHNIQUE: Digital breast mammography with tomosynthesis is performed in both the craniocaudal and mediolateral oblique views along with computer-aided detection (CAD). FINDINGS: The breasts are heterogeneously dense, which may obscure small masses (ACR BI-RADS breast composition Category c). Left: There are no significant masses, abnormal calcifications, or other abnormalities. Right: Oval mass medial breast middle depth on CC view. No suspicious calcifications or other abnormal findings. MM/MM tomosynthesis screening BI IMPRESSION: Additional imaging is recommended ASSESSMENT: BI-RADS BI-RADS 0 - Incomplete: Needs additional Imaging. RECOMMENDATION: 1. Additional views of the right breast starting with ultrasound. 2. Radiology department staff will contact the patient for additional imaging. Additional Imaging required This examination should not preclude the clinical evaluation of a suspicious palpable abnormality. This patient's information was entered into a reminder system with a target due date for their next mammogram. Electronically signed by: Paulina Carballo DO 09/03/2024 11:33 AM EST Dictated By: Paulina Carballo DO Signed By: <Electronically signed by Paulina Carballo DO in OV> 09/03/24 1133 DD/ 1016 TD/TT: 08/29/24 1016 Ferryboat Pilot: [facility] External Provider IMG BI PROCEDURES Edited Result - Final * HPV DNA, Low/High Risk (08/03/2024 9:38 AM EST) HPV High Risk Negative Negative [facility] HPV Genotype 16 Negative Negative [facility] HPV Genotype 18 Negative Negative [facility] Comment:HPV testing performe d at [facility] (CLIA#[id number]), [address] [place] [address].Testing for HPV was performed using the Mele SAROJ 6800system. The presence of HPV in the female [...] 9:38 AM EST 08/04/2024 7:07 AM EST Generic External Data Provider LAB BLOOD ORDERAB LES Final Result [facility] [address] [place] [phone] * Pap Smear (08/03/2024 9:38 AM EST) 08/03/2024 9:38 AM EST 08/04/2024 6:05 AM EST Narrative [facility] - 08/12/2024 11:15 AM EST ----- ------- Name: Cale GarciaMargarita osorio ? Age/Sex: 39/F ? : 1985 Unit#: [id number] ?? Attend Dr: Tino Rose MD ?Re08/03/24 ?Status: DEP REF ? Location: HO.LNP ?Disch: ? ----- ------- SPEC : [id number] ? RECD: 08/04/24 ? STATUS: ??SOUT ? REQ NUM: [id number] ? ALBIN: 08/03/24 ? SUBM DR: Tino [...] Copies To: ?? Bert Garza MD ?? [facility] ?? [address] ?? [place] [address] ?? [phone] ?? Tino Rose MD ?? [facility] ?? [address] [place] [address] [address] ?? [place] [address] ?? [phone] ----- ------- Signed (signature on file) KEL Reddy (ASCP) 08/12/24 1115 ? ----- ------- ? END OF REPORT ? us Generic External Data Provider LAB CYTOLOGY ORDIsaias SCHNEIDER Final Result [facility] [address] [place] [address] [phone] * HIV 1/2 ANTIGEN/ANTIBODY,FOURTH GENERATION W/RFL (04/22/2021 9:52 AM EDT) [facility] HIV-1/2 ANTIGEN AND ANTIBODIES, 4TH GENERATION W/ [...] ? For additional information please refer to http://education.eyefactive.Effcon MXR/faq/NIJ069 (This link is being provided for informational/ educational purposes only.) ? The performance of this assay has not been clinically validated in patients less than 2 years old. ?? 04/22/2021 9:52 AM EDT us Bert Yang MD LAB BLOOD ORDERABL ES Final Result [facility] [address] from Last 3 Months or Most Recently Relevant to Health Maintenance Insurance [facility] [employer] Care Teams Mash Grinder Relationship Specialty Start Date End Date Bert Garza MD [address] [facility] [place] [address] PCP - General Internal Medicine 11/29/19
--- OUTSIDE RECORDS SUMMARY | 2024-10-03 14:18 | XMS_ITS | Encounter Summary ---
Author Organization [facility] Address [address] [place] [address] Care Team Providers Care Barrel Straightener Name Role Phone Bert Garza MD Primary Care Prov ider Reason for Visit * Reason Comments Med Refill Encounter Details Date Type Department Care Team ([facility] Contact Info) Description 10/30/2022 Refill [facility] & PEDS [address] [place] [address] Aide Dumont MD Social History Tobacco Use [...] Upcoming Encounters Date Type Department Care Team ([facility] Contact Info) Description 10/18/2024 9:45 AM EDT Office Visit [facility]EDS [address] [place] [address] Marli English MD [address] [place] [address] documented as of this encounter Visit Diagnoses Not on filedocumented in this encounter Care Teams Barrel Straightener Relationship Specialty Start Date End Date Bert Garza MD [address] [place] [address] PCP - General Internal Medicine 11/29/19 documented as of this encounter
--- OUTSIDE RECORDS SUMMARY | 2024-10-03 14:18 | XMS_ITS | Encounter Summary ---
Author Organization [facility] Address [address] [place] [address] [address] [id number] Care Team Providers Care Tool Engineer Name Role Phone Bert Garza MD Primary Care Prov ider Encounter Details Date Type Department Care Team ([facility] Contact Info) Description 06/09/2023 Orders Only [facility] [address] [place] [address] Melina Syed LPN Social History Tobacco Use [...] Encounters Date Type Department Care Team (Late Contact Info) Description 10/18/2024 9:45 AM EDT Office Visit [facility] [address] [place] [address] Marli English MD [address] [place], [place] [phone] documented as of this encounter Visit Diagnoses Not on filedocumented in this encounter Care Teams Tool Engineer Relationship Specialty Start Date End Date Bert Garza MD [address] [place], [place] [phone] PCP - General Internal Medicine 11/29/19 documented as of this encounter
== END 2024-10-03 12:40 | disposition home or self-care (01) ==
LOC: HO.MAMMO 12:39
PROVIDERS: PCP Internal Medicine; Visit Provider Internal Medicine
DX: N63.15 Unspecified lump in the right breast, overlapping quadrants (principal)
CPT/HCPCS: 76642; 77061; 77065

== ENCOUNTER → 2024-10-03 13:00 | Outpatient (BNV) | payer OTHER, SELFPAY | PROVIDERS: PCP Internal Medicine; Visit Provider Internal Medicine | DX: N64.89 Other specified disorders of breast (principal) | CPT/HCPCS: 76642; 77061; 77065 ==

== ENCOUNTER 2025-04-10 08:50 | Outpatient (REF) | payer OTHER, SELFPAY ==
--- NOTE | ~2025-04-10 | US_ITS ---
EXAMINATION: US DIAGNOSTIC ULTRASOUND BREAST, RIGHT CLINICAL INFORMATION: 6 month follow-up right breast ultrasound for probable complicated cyst.. COMPARISON: Comparison is made with relevant prior imaging. TECHNIQUE: Ultrasound of the breast is performed with real-time schumacher scale imaging and color Doppler. FINDINGS: Targeted color Doppler ultrasound again demonstrates a 3:00 3 cm from nipple a hypoechoic oval circumscribed solid mass versus complicated cyst versus intramammary lymph node at 3:00 3 cm from nipple measuring 5 x 3 x 3 mm overall not significantly changed from prior ultrasound. Results are discussed with the patient at time of visit. US/US Breast RT Limited Mamm Only IMPRESSION: Hypoechoic oval solid mass versus complicated cyst at 3:00 in the right breast. Recommend 6 month follow-up ultrasound for further evaluation of stability at that time the patient will be due for bilateral mammography. ASSESSMENT: BI-RADS 3: Probably Benign RECOMMENDATION: Diagnostic ultrasound in 6 months. This patient's information was entered into a reminder system with a target due date for their next mammogram. Electronically signed by: Paulina Carballo DO 04/10/2025 09:36 AM EDT
--- OUTSIDE RECORDS SUMMARY | 2025-04-10 09:39 | XMS_ITS | Clinical Summary ---
Author Organization [employer] Address [address] [facility] [address] [place] [address] Care Team Providers Care Merchant Patroller Name Role Phone Bert Garza MD Primary Care Prov ider Allergies No known active allergies Medications azelastine (Astelin) 0.1 % nasal spray USE TWO SPRAYS IN EACH NOSTRIL TWICE DAILY 30 mL 1 3 Active albuterol 108 (90 Base) MCG/ACT inhaler Inhale 2 puffs every 4 (four) hours if needed for wheezing or shortness of breath. 18 g 1 4 Active Spacer/Aero-Hol ding Chambers (OptiChamber Nakia) misc 1 each every 4 (four) hours if needed (asthma). 1 each 4 Active fluticasone (Flonase Allergy Relief) 50 MCG/ACT nasal spray Administer 1 spray into each nostril in the morning. Shake gently. Before first use, prime pump. After use, clean tip and replace cap. 16 g 1 4 Active cyclobenzaprine (Flexeril) 10 MG tablet Take 1 tablet (10 mg) by mouth at bedtime for 10 days. 10 tablet 4 Active multivitamin () 27-0.8 MG tablet TAKE 1 TABLET BY MOUTH EVERY MORNING 90 tablet 1 4 Active ibuprofen 400 MG tablet TAKE ONE TABLET EVERY 6 HOURS NEEDED FOR PAIN 30 tablet 4 Active etonogestrel-et hinyl estradiol (Nuvaring) 0.12-0.015 MG/24HR vaginal ring INSERT 1 RING VAGINALLY. LEAVE IN FOR THREE WEEKS THEN REMOVE 1 Ring. 11 5 Active diphenhydrAMINE (BENADryl) 25 MG capsule Take 2 capsules (50 mg) by mouth every 6 (six) hours if needed for itching. May take 1-2 capsules prn rashor itching 30 capsule 1 5 08/15/19 26 Active triamcinolone (Kenalog) 0.1 % cream Apply topically 2 times daily. 30 g 1 5 Active cetirizine (ZyrTEC) 10 MG tabletIndicatio ns:Irritant contact dermatitis due to other chemical products Take 1 tablet (10 mg) by mouth if needed each day (rash, itching). Prn. 30 tablet 5 Active Active Problems Problem Noted Date Diagnosed Date [...] 10/21/2022 Varicose veins of lower extremity 10/21/2022 Immunizations Immunization Administration Dates Next Due Influenza injectable quadriv [...] Sign Reading Time Taken Comments Blood Pressure 105/64 10/18/2024 9:59 AM EDT Pulse 84 10/18/2024 9:59 AM EDT Temperature 36.5 C (97.7 F) 10/18/2024 9:59 AM EDT Respiratory Rate 18 08/15/2024 10:30 AM EST Oxygen Saturation 97% 08/15/2024 10:30 AM EST Inhaled Oxygen Concentration - - Weight 101 kg (223 lb) 08/15/2024 10:30 AM EST Height 165.1 cm (5' 5 ) 05/20/2024 11:08 AM EST Body Mass Index 37.11 05/20/2024 11:08 AM EST Plan of Treatment Health Maintenance Due Date Last Done Comments SDOH Screening 1985 Disability Screening 1985 Family Planning (PISQ) 1998 HPV Vaccines (1 - 3-dose series) 1998 Hepatitis C Screening 2001 Hepatitis B Vaccines (1 of 3 - 19+ 3-dose series) 2002 COVID-19 Vaccine (2023-2 5 season) 2025 Influenza Vaccine (#1) 2025 8, 05/05/2017 Alcohol/Substance Use Screening 09/05/2025 09/05/2024 Depression Screening 09/05/2025 09/05/2024, 09/05/2024 Tobacco Screening 10/18/2025 10/18/2024 Mammogram 10/03/2026 10/03/2024, 08/29/2024 Pap Smear 08/03/2027 08/03/2024, 03/04/2022 DTaP/Tdap/Td [...] patient's age to complete this topic Meningococcal B Vaccine Aged Out No l onger eligible based on patient's age to complete this topic Meningococcal Vaccine Aged Out No jarrett eulalia eligible based on patient's age to complete this topic Pneumococcal Vaccine: Pediatrics (0 to 5 Years) and At-Risk Patients (6 to 49) Years Aged Out No longer eligible b ased on patient's age to complete this topic RSV under 20 months Aged Out No longe r eligible based on patient's age to complete this topic Rotavirus Vaccines Aged Out No longer eligible based on patient's age to complete this topic Procedures Procedure Name Priority Date/Time Associated Diagnosis Comments BI US BREAST LIMITED RIGHT Routine 10/03/2024 1:00 PM EDT HPV DNA, LOW/HIGH RISK Routine 08/03/2024 9:38 AM EST PAP SMEAR Routine 08/03/2024 9:38 AM EST HIV 1/2 ANTIGEN/ANTIBODY, FOURTH GENERATION W/RFL Routine 04/22/2021 9:52 AM EDT from Last 3 Months or Most Recently Relevant to Health Maintenance Results * BI US Breast Limited Right (10/03/2024 1:00 PM EDT) Anatomical Region Laterality Modality Breast Right Ultrasound 10/03/2024 1:00 PM EDT Narrative 10/03/2024 2:47 PM EDT [facility] [address] [place] [address] Ultrasound Report Signed Patient: Margarita Wang MR#: [id number] : 1985 Acct:[id number] Age/Sex: 39 / F ADM Date: 10/03/24 Loc: HO.MAMMO Attending Dr: Bert Yang MD Ordering Physician: Bert Garza MD Date of Service: 10/03/24 Procedure(s): US breast RT limited mamm only Accession Number(s): [id number] cc: Bert Garza MD EXAMINATION: MM DIAGNOSTIC DIGITAL BREAST TOMOSYNTHESIS, RIGHT Limited right breast ultrasound. CLINICAL INFORMATION: Call back from screening for asymmetry medial right breast on CC view. COMPARISON: Mammography: Priors on PACS. TECHNIQUE: Digital breast tomosynthesis is performed in both the craniocaudal and mediolateral oblique views along with computer-aided detection (CAD). Synthesized 2D images are generated from the tomosynthesis. FINDINGS: There are scattered areas of fibroglandular density (ACR BI-RADS breast composition Category b). Circumscribed oval mass persists in the medial right breast on CC view. No suspicious calcifications or other abnormal findings. Targeted color Doppler ultrasound demonstrates a minimally complicated cyst or adjacent cysts with thin intervening septation which is avascular at 3:00 3 cm from the nipple measuring approximately 6 x 3 x 6 mm which correlates with the circumscribed oval mass on mammography. US/US breast RT limited mamm only IMPRESSION: Probably benign adjacent minimally complicated cyst at 3:00 3 cm from the nipple on ultrasound. Recommend 6 month follow-up ultrasound for further evaluation of stability. ASSESSMENT: BI-RADS BI-RADS 3 - Probably benign finding(s) - 6 month follow-up suggested RECOMMENDATION: 6 Month F/U Results were provided to the patient at time of visit by the technologist. This patient's information was entered into a reminder system with a target due date for their next mammogram. Electronically signed by: Paulina Carballo DO 10/03/2024 02:44 PM EDT RP Dictated By: Paulina Carballo DO Signed By: <Electronically signed by Paulina Carballo DO in OV> 10/03/24 1444 DD/ 1300 TD/TT: 10/03/24 1320 Pattern Finisher: Procedure Note Donotuseinterpreter, Image - 10/03/2024 [facility] [address] [place], [place] [address] Ultrasound Report Signed Patient: Margarita Wang#: [id number] : 1985Acct:[id number] Age/Sex: 39 / FADM Date: 10/03/24 Loc: HO.MAMMO Attending Dr: Bert Yang MD Ordering Physician: Bert Garza MD Date of Service: 10/03/24 Procedure(s): US breast RT limited mamm only Accession Number(s): [id number] cc: Bert Garza MD EXAMINATION: MM DIAGNOSTIC DIGITAL BREAST TOMOSYNTHESIS, RIGHT Limited right breast ultrasound. CLINICAL INFORMATION: Call back from screening for asymmetry medial right breast on CC view. COMPARISON: Mammography: Priors on PACS. TECHNIQUE: Digital breast tomosynthesis is performed in both the craniocaudal and mediolateral oblique views along with computer-aided detection (CAD). Synthesized 2D images are generated from the tomosynthesis. FINDINGS: There are scattered areas of fibroglandular density (ACR BI-RADS breast composition Category b). Circumscribed oval mass persists in the medial right breast on CC view. No suspicious calcifications or other abnormal findings. Targeted color Doppler ultrasound demonstrates a minimally complicated cyst or adjacent cysts with thin intervening septation which is avascular at 3:00 3 cm from the nipple measuring approximately 6 x 3 x 6 mm which correlates with the circumscribed oval mass on mammography. US/US breast RT limited mamm only IMPRESSION: Probably benign adjacent minimally complicated cyst at 3:00 3 cm from the nipple on ultrasound. Recommend 6 month follow-up ultrasound for further evaluation of stability. ASSESSMENT: BI-RADS BI-RADS 3 - Probably benign finding(s) - 6 month follow-up suggested RECOMMENDATION: 6 Month F/U Results were provided to the patient at time of visit by the technologist. This patient's information was entered into a reminder system with a target due date for their next mammogram. Electronically signed by: Paulina Carballo DO 10/03/2024 02:44 PM EDT RP Dictated By: Paulina Carballo DO Signed By: <Electronically signed by Paulina Carballo DO in OV> 10/03/24 1444 DD/ 1300 TD/TT: 10/03/24 1320 Pattern Finisher: us Bert Yang MD [facility] US PROCEDURES Final Result * HPV DNA, Low/High Risk (08/03/2024 9:38 AM EST) HPV High Risk Negative Negative [facility] HPV Genotype 16 Negative Negative [facility] HPV Genotype 18 Negative Negative [facility] Comment:HPV testing performe d at [facility] (CLIA#[id number]), [address] [place] [address].Testing for HPV was performed using the Mele [...] Provider LAB BLOOD ORDERAB LES Final Result [facility] [address] [place] [phone] * Pap Smear (08/03/2024 9:38 AM EST) 08/03/2024 9:38 AM EST 08/04/2024 6:05 AM EST Narrative [facility] - 08/12/2024 11:15 AM EST ----- ------- Name: Cale BrennanMargarita Age/Sex: 39/F : 1985 Unit#: [id number] Attend Dr: Tino Rose MD Re08/03/24 Status: [facility] Location: [facility] Disch: ----- ------- SPEC : [id number] RECD: 08/04/24 STATUS: SOPHIE CRAWFORD NUM: [id number] ALBIN: 08/03/24 [facility] DR: Tino Rose MD ENTERED: 08/04/24 SP TYPE: Pap Smr OTHR DR: Bert Garza MD ORDERED: Pap Smear Interpretation Satisfactory for evaluation. Negative for intraepithelial lesion or malignancy. No endocervical cells seen. HPV High Risk: Negative HPV Genotyping 16: Negative HPV Genotyping 18: Negative Clinical Information LMP:07/16/24 Previous PAP test:2018 Other surgery: Other history: Material Received ThinPrep-Cervical Copies To: Bert Garza MD [facility] [address] [place] [address] Tino Rose MD [facility] [address] [place] [address] ----- ------- Signed (signature on file) KEL Reddy (ASCP) 08/12/24 1115 ----- ------- END OF REPORT us Generic External Data Provider LAB CYTOLOGY MISSY SCHNEIDER Final Result [facility] [address] [place] [address] [phone] * HIV 1/2 ANTIGEN/ANTIBODY,FOURTH GENERATION W/RFL (04/22/2021 9:52 AM EDT) Pathologist [facility] HIV-1/2 ANTIGEN AND ANTIBODIES, 4TH GENERATION W/ REFLEX NON-REACT ROBERTO NON-REACT ROBERTO [facility] Comment: HIV-1 antigen and HIV-1/HIV-2 antibodies were not detected. There is no laboratory evidence of HIV infection. PLEASE NOTE: This information has been disclosed to you from records whose confidentiality may be protected by state law. If your state requires such protection, then the state law prohibits you from making any further disclosure of the information without the specific written consent of the person to whom it pertains, or as otherwise permitted by law. A general authorization for the release of medical or other information is NOT sufficient for this purpose. For additional information please refer to http://education.LockerDome.VoAPPs/faq/BUF201 (This link is being provided for informational/ educational purposes only.) The performance of this assay has not been clinically validated in patients less than 2 years old. 04/22/2021 9:52 AM EDT us Bert Yang MD LAB BLOOD ORDERABL ES Final Result [facility] [address] from Last 3 Months or Most Recently Relevant to Health Maintenance Care Teams Merchant Patroller Relationship Specialty Start Date End Date Bert Garza MD [address] [place] [phone] PCP - General Internal Medicine 11/29/19
--- OUTSIDE RECORDS SUMMARY | 2025-04-10 09:39 | XMS_ITS | Encounter Summary ---
Author Organization [employer] [facility] Address [address] [facility] 7t [place] [address] Care Team Providers Care Machine Shop Apprentice Name Role Phone Bert Garza MD Primary Care Prov ider Reason for Visit * Reason Onset Date Comments FYI 05/13/2024 Encounter Details Date Type Department Care Team ([facility] Contact Info) Description 05/13/2024 Telephone [facility] MED[facility] [address] [place] [address] Bert Garza MD [address] [place] [address] FYI Social History Tobacco Use Types Packs/Day [...] on filedocumented in this encounter Care Teams Machine Shop Apprentice Relationship Specialty Start Date End Date Bert Garza MD [address] [place] [address] PCP - General Internal Medicine 11/29/19 documented as of this encounter
--- OUTSIDE RECORDS SUMMARY | 2025-04-10 09:39 | XMS_ITS | Encounter Summary ---
Author Organization [email or web address] Address [address] [facility] 7t [place] [address] Care Team Providers Care Color Laboratory Technician Name Role Phone Bert Garza MD Primary Care Prov ider Encounter Details Date Type Department Care Team ([facility] st Contact Info) Description 07/02/2023 Orders Only [facility]EDS [address] [place], [place] [phone] Marli English MD [address] [place], [place] [phone] Viral upper respiratory tract infection (Primary Dx) [...] site documented in this encounter Care Teams Color Laboratory Technician Relationship Specialty Start Date End Date Bert Garza MD [address] [place] [address] PCP - General Internal Medicine 11/29/19 documented as of this encounter
--- OUTSIDE RECORDS SUMMARY | 2025-04-10 09:39 | XMS_ITS | Encounter Summary ---
Author Organization [employer] [facility] Address [address] [facility] [address] [place] [address] Care Team Providers Care Barn Boss Name Role Phone Bert Garza MD Primary Care Prov ider Reason for Visit * Reason Comments Med Refill Encounter Details Date Type Department Care Team ([facility] Contact Info) Description 10/30/2022 Refill [facility]EDS [address] [place], [place] [phone] Aide Dumont MD Social History Tobacco Use [...] on filedocumented in this encounter Care Teams Barn Boss Relationship Specialty Start Date End Date Bert Garza MD [address] [place] [address] PCP - General Internal Medicine 11/29/19 documented as of this encounter
--- OUTSIDE RECORDS SUMMARY | 2025-04-10 09:39 | XMS_ITS | Encounter Summary ---
Author Organization [employer] [facility] Address [address] [facility] 7t [place] [address] Care Team Providers Care Bilingual School Psychologist Name Role Phone Bert Garza MD Primary Care Prov ider Encounter Details Date Type Department Care Team ([facility] st Contact Info) Description 06/09/2023 Orders Only [facility] MED & PEDS [address] [place] [address] Melina Syed LPN Social History Tobacco Use [...] on filedocumented in this encounter Care Teams Bilingual School Psychologist Relationship Specialty Start Date End Date Bert Garza MD [address] [place] [address] PCP - General Internal Medicine 11/29/19 documented as of this encounter
== END 2025-04-10 08:51 | disposition home or self-care (01) ==
LOC: HO.MAMMO 08:50
PROVIDERS: PCP Internal Medicine; Visit Provider Internal Medicine
DX: N60.01 Solitary cyst of right breast (principal)
CPT/HCPCS: 76642

== ENCOUNTER → 2025-04-10 09:00 | Outpatient (BNV) | payer OTHER, SELFPAY | PROVIDERS: PCP Internal Medicine; Visit Provider Internal Medicine | DX: R92.8 Other abnormal and inconclusive findings on diagnostic imaging of breast (principal) | CPT/HCPCS: 76642 ==